=== PATIENT | female | born 1955 | race Caucasian/White ===

== ENCOUNTER 2016-11-17 17:49 | Inpatient (IN) | payer OTHER ==
[~2016-11-17] VITALS: Ht 167.6 cm; Wt 82.6 kg
[2016-11-17] MEDS ORDERED: DIVA500T7 PO (18:04)
[2016-11-17] MEDS ORDERED: BACL20TA PO (18:04)
[2016-11-17] MEDS ORDERED: QUET50TA PO (18:04)
[2016-11-17] MEDS ORDERED: ATOR40TA PO (18:04)
[2016-11-17] MEDS ORDERED: MIRT30TA7 PO (18:04)
[2016-11-17] MEDS ORDERED: OXYC-164 PO (18:04)
[2016-11-17] MEDS ORDERED: METH10TA2 PO (18:04)
[2016-11-17] MEDS ORDERED: CLON1TAB4 PO (18:04)
[2016-11-17] MEDS ORDERED: LEVO500T90 PO (18:04)
[2016-11-17] MEDS ORDERED: GABA-534 PO (18:04)
[2016-11-17] MEDS ORDERED: DULO20CA PO (18:04)
[2016-11-17] MEDS ORDERED: FLUT1BLS IH (18:04)
[2016-11-17] MEDS ORDERED: LEVO150T8 PO (18:04)
[2016-11-17] MEDS ORDERED: OXYB5TAB11 PO (18:04)
[2016-11-17] MEDS ORDERED: DOCU250C21 PO (18:04)
[2016-11-17] MEDS ORDERED: RIVA1TAB PO (18:04)
[2016-11-17 18:22] LABS: BASOPHILS # (AUTO) 0.1 K/uL (0.0-8.0); BASOPHILS % (AUTO) 1.1 % (0.0-2.0); EOSINOPHILS # (AUTO) 0.1 K/uL (0.0-0.7); EOSINOPHILS % (AUTO) 0.7 % (0.0-7.0); HEMATOCRIT 43.5 % (37-47); HEMOGLOBIN 14.1 G/DL (12.0-16.0); LYMPHOCYTES % (AUTO) 9.6 % (20.5-51.5); MEAN CORPUSCULAR HEMOGLOBIN 31.2 UUG (27.0-31.0); MEAN CORPUSCULAR HGB CONC 32 g/dL (32.0-37.0); MEAN CORPUSCULAR VOLUME 96.1 FL (81.0-99.0); MONOCYTES # (AUTO) 0.4 K/UL (0.1-1.30); MONOCYTES % (AUTO) 4.4 % (0.0-11.0); NEUTROPHILS # (AUTO) 8.5 K/UL (1.8-8.9); NEUTROPHILS % (AUTO) 84.2 % (38.5-71.5); PLATELET COUNT (AUTO) 348 K/UL (150-450); RED BLOOD CELL COUNT(AUTO) 4.52 MIL/UL (4.2-5.4); WHITE BLOOD COUNT (AUTO) 10.1 K/UL (4.0-11.2)
[2016-11-17 18:29] LABS: CALCIUM 9.6 mg/dL (8.5-10.1); CHLORIDE 104 mmol/L (98-107); CREATININE 0.9 mg/dL (0.6-1.3); GFR 64 mL/min (>60); GLUCOSE 106 mg/dL (74-106); POTASSIUM 3.6 mmol/L (3.5-5.1); SODIUM SERUM 145 mmol/L (136-145); UREA NITROGEN, BLOOD 18 mg/dL (7-18)
[2016-11-17 18:30] LABS: CARBON DIOXIDE 33 mmol/L (21-32); ETHANOL < 3 MG/DL (0-0)
[2016-11-17 18:35] LABS: ALANINE AMINOTRANSFERASE 9 U/L (14-59); ALBUMIN 3.5 g/dL (3.4-5.0); ALKALINE PHOSPHATASE 116 U/L (50-136); ASPARTATE AMINOTRANSFERASE 13 U/L (15-37); BILIRUBIN,DIRECT 0.1 mg/dL (0.0-0.2); BILIRUBIN,TOTAL 0.4 mg/dL (0.2-1.0); TOTAL PROTEIN, SERUM 7.2 g/dL (6.4-8.2)
[2016-11-17 18:36] LABS: ACETAMINOPHEN < 2.0 ug/mL (10-30)
[2016-11-17] MEDS ORDERED: LORAZEPAM 2 MG/1 ML VIAL IM ONE (18:45)
[2016-11-17] MEDS ORDERED: LORAZEPAM 2 MG/1 ML VIAL ONE (18:53)
[2016-11-17 18:56] LABS: THYROID STIMULATING HORMONE 1.691 mIU/mL (0.358-3.740)
[2016-11-17] MEDS ORDERED: TEMAZEPAM 7.5 MG CAPSULE PO PRN (20:15)
[2016-11-17] MEDS ORDERED: LORAZEPAM 0.5 MG TABLET PO PRN (20:15)
[2016-11-17] MEDS ORDERED: ACETAMINOPHEN 325 MG TABLET PO PRN (20:15)
[2016-11-17] MEDS ORDERED: MAG HYDROX/AL HYDROX/SIMETH 30 ML LIQUID UDC PO PRN (20:15)
[2016-11-17 20:54] VITALS: BP 149/87
[2016-11-17] MEDS: LORAZEPAM 1 MG TABLET PO PRN (21:09)
[2016-11-17] MEDS ORDERED: OLANZAPINE 10 MG VIAL IM ONE (22:15)
[2016-11-18] MEDS: BACLOFEN 20 MG TABLET PO SCH ×4 (06:00→17:20)
[2016-11-18 07:30] VITALS: BP 139/97
[2016-11-18] MEDS: LEVOTHYROXINE SODIUM 150 MCG TABLET PO SCH (08:21)
[2016-11-18] MEDS: DOCUSATE SODIUM 250 MG CAPSULE PO SCH ×2 (08:21→17:20)
[2016-11-18] MEDS: LORAZEPAM 1 MG TABLET PO PRN (08:21)
[2016-11-18] MEDS ORDERED: GABAPENTIN 300 MG CAPSULE PO SCH (09:00)
[2016-11-18] MEDS ORDERED: RIVAROXABAN PO SCH (09:00)
[2016-11-18] MEDS ORDERED: Medication Not On Formulary EA (Oxycodone Hcl/Acetaminophen (Oxycodone-Apap 10-325 Mg Ta PO SCH (09:00)
[2016-11-18] MEDS: OXYBUTYNIN CHLORIDE 5 MG TABLET PO SCH (10:43)
[2016-11-18] MEDS: METHADONE HCL 10 MG TABLET PO SCH ×2 (10:44→20:28)
[2016-11-18] MEDS ORDERED: OXYCODONE/APAP 5-325 MG TABLET PO PRN (10:45)
[2016-11-18] MEDS ORDERED: OLANZAPINE 10 MG VIAL IM ONE (10:45)
[2016-11-18] MEDS ORDERED: LEVOFLOXACIN 500 MG TABLET PO SCH (11:30)
[2016-11-18] MEDS: FLUTICASONE/SALMETEROL 100/50 1 INH DISK.W.DEV INH SCH ×2 (14:34→20:28)
[2016-11-18] MEDS: DIVALPROEX SPRINKLE 125 MG CAP.SPRINK PO SCH ×2 (15:33→17:21)
[2016-11-18] MEDS: QUETIAPINE FUMARATE 25 MG TABLET PO SCH ×2 (15:34→17:21)
[2016-11-18] MEDS: GABAPENTIN 300 MG CAPSULE PO SCH ×2 (15:34→17:21)
[2016-11-18] MEDS: DULOXETINE 60 MG CAPSULE.DR PO SCH (15:34)
[2016-11-18 15:41] VITALS: BP 125/84
[2016-11-18] MEDS: RIVAROXABAN 10 MG TABLET PO SCH (17:22)
[2016-11-18] MEDS: MIRTAZAPINE 15 MG TABLET PO SCH (20:27)
[2016-11-18] MEDS: ATORVASTATIN 40 MG TABLET PO SCH (20:28)
[2016-11-18 20:47] VITALS: BP 112/62
[2016-11-19] MEDS: BACLOFEN 20 MG TABLET PO SCH ×5 (06:37→23:59)
[2016-11-19] MEDS: LEVOTHYROXINE SODIUM 150 MCG TABLET PO SCH (06:37)
[2016-11-19 07:30] VITALS: BP 137/67
[2016-11-19] MEDS: DIVALPROEX SPRINKLE 125 MG CAP.SPRINK PO SCH ×3 (08:39→17:16)
[2016-11-19] MEDS: DULOXETINE 60 MG CAPSULE.DR PO SCH (08:40)
[2016-11-19] MEDS: OXYBUTYNIN CHLORIDE 5 MG TABLET PO SCH (08:40)
[2016-11-19] MEDS: METHADONE HCL 10 MG TABLET PO SCH ×2 (08:40→20:22)
[2016-11-19] MEDS: QUETIAPINE FUMARATE 25 MG TABLET PO SCH ×3 (08:40→17:16)
[2016-11-19] MEDS: FLUTICASONE/SALMETEROL 100/50 1 INH DISK.W.DEV INH SCH ×2 (08:41→20:16)
[2016-11-19] MEDS: DOCUSATE SODIUM 250 MG CAPSULE PO SCH ×2 (08:41→17:16)
[2016-11-19] MEDS: GABAPENTIN 300 MG CAPSULE PO SCH ×3 (08:41→17:16)
[2016-11-19 16:12] VITALS: BP 129/75
[2016-11-19] MEDS: MAGNESIUM HYDROXIDE 30 ML LIQUID UDC PO PRN (18:12)
[2016-11-19] MEDS: RIVAROXABAN 10 MG TABLET PO SCH (18:13)
[2016-11-19] MEDS: ATORVASTATIN 40 MG TABLET PO SCH (20:16)
[2016-11-19] MEDS: MIRTAZAPINE 15 MG TABLET PO SCH (20:16)
[2016-11-19 20:31] VITALS: BP 108/68
[2016-11-20 00:33] LABS: *BILIRUBIN,URIN NEGATIVE (NEGATIVE); *BLOOD, URINE Trace-intact (NEGATIVE); *COLOR,URINE STRAW (YELLOW); *KETONES,URINE NEGATIVE (NEGATIVE); *PROTEIN,URINE NEGATIVE (NEGATIVE); *UROBILINOGEN,URINE 0.2 E.U./dl (NORMAL); LEUKOCYTE ESTERASE ,URINE 3+ (NEGATIVE); NITRITE, URINE NEGATIVE (NEGATIVE); UGLUCOSE NEGATIVE (NEGATIVE)
[2016-11-20] MEDS: TEMAZEPAM 15 MG CAPSULE PO PRN ×2 (00:40→23:20)
[2016-11-20 00:41] LABS: *CLARITY,URINE CLEARH (CLEAR)
[2016-11-20 00:42] LABS: BACTERIA,URINE FEW /HPF (NONE SEEN); SQUAMOUS EPITHELIAL CELL,UR MODERATE /HPF (NONE SEEN); WBC,URINE 20-50 /HPF (0-3)
[2016-11-20 00:46] LABS: *AMPHETAMINE, URINE NEGATIVE (NEGATIVE); *BARBITURATE, URINE NEGATIVE (NEGATIVE); *CANNABINOID, URINE POSITIVE (NEGATIVE); *COCCAINE, URINE NEGATIVE (NEGATIVE); *OPIATE, URINE NEGATIVE (NEGATIVE); *PHENCYCLIDINE SCREEN,URINE NEGATIVE (NEGATIVE)
[2016-11-20] MEDS: BACLOFEN 20 MG TABLET PO SCH ×3 (06:29→17:33)
[2016-11-20] MEDS: LEVOTHYROXINE SODIUM 150 MCG TABLET PO SCH (06:29)
[2016-11-20 07:30] VITALS: BP 122/80
[2016-11-20] MEDS: FLUTICASONE/SALMETEROL 100/50 1 INH DISK.W.DEV INH SCH ×2 (08:36→21:12)
[2016-11-20] MEDS: DOCUSATE SODIUM 250 MG CAPSULE PO SCH ×2 (08:36→17:32)
[2016-11-20] MEDS: DULOXETINE 60 MG CAPSULE.DR PO SCH (08:37)
[2016-11-20] MEDS: DIVALPROEX SPRINKLE 125 MG CAP.SPRINK PO SCH ×3 (08:37→17:32)
[2016-11-20] MEDS: OXYBUTYNIN CHLORIDE 5 MG TABLET PO SCH (08:40)
[2016-11-20] MEDS: METHADONE HCL 10 MG TABLET PO SCH ×2 (08:41→21:11)
[2016-11-20] MEDS: QUETIAPINE FUMARATE 25 MG TABLET PO SCH ×3 (08:41→17:32)
[2016-11-20] MEDS: GABAPENTIN 300 MG CAPSULE PO SCH ×3 (08:41→17:33)
[2016-11-20] MEDS: NICOTINE 21 MG/24HR PATCH TD SCH (11:06)
[2016-11-20 15:27] VITALS: BP 114/66
[2016-11-20] MEDS ORDERED: SULFAMETH/TRIMETH 800/160 MG TABLET PO SCH (17:00)
[2016-11-20] MEDS: RIVAROXABAN 10 MG TABLET PO SCH (17:33)
[2016-11-20] MEDS: SULFAMETH/TRIMETH 800/160 MG TABLET PO SCH (17:33)
[2016-11-20 20:33] VITALS: BP 114/63
[2016-11-20] MEDS: ATORVASTATIN 40 MG TABLET PO SCH (20:47)
[2016-11-20] MEDS: MIRTAZAPINE 15 MG TABLET PO SCH (20:48)
[2016-11-21] MEDS: BACLOFEN 20 MG TABLET PO SCH ×4 (05:11→17:14)
[2016-11-21] MEDS: LEVOTHYROXINE SODIUM 150 MCG TABLET PO SCH (06:21)
[2016-11-21 07:30] VITALS: BP 149/87
[2016-11-21] MEDS: DIVALPROEX SPRINKLE 125 MG CAP.SPRINK PO SCH ×3 (08:16→17:13)
[2016-11-21] MEDS: FLUTICASONE/SALMETEROL 100/50 1 INH DISK.W.DEV INH SCH ×2 (08:16→20:20)
[2016-11-21] MEDS: DULOXETINE 60 MG CAPSULE.DR PO SCH (08:17)
[2016-11-21] MEDS: OXYBUTYNIN CHLORIDE 5 MG TABLET PO SCH (08:17)
[2016-11-21] MEDS: METHADONE HCL 10 MG TABLET PO SCH ×2 (08:17→20:06)
[2016-11-21] MEDS: NICOTINE 21 MG/24HR PATCH TD SCH (08:18)
[2016-11-21] MEDS: DOCUSATE SODIUM 250 MG CAPSULE PO SCH ×2 (08:18→17:13)
[2016-11-21] MEDS: QUETIAPINE FUMARATE 25 MG TABLET PO SCH ×3 (08:18→17:14)
[2016-11-21] MEDS: GABAPENTIN 300 MG CAPSULE PO SCH ×3 (08:18→17:13)
[2016-11-21] MEDS: SULFAMETH/TRIMETH 800/160 MG TABLET PO SCH ×2 (08:18→17:14)
[2016-11-21 16:15] VITALS: BP 107/79
[2016-11-21] MEDS: RIVAROXABAN 10 MG TABLET PO SCH (17:15)
[2016-11-21] MEDS: MIRTAZAPINE 15 MG TABLET PO SCH (20:05)
[2016-11-21] MEDS: ATORVASTATIN 40 MG TABLET PO SCH (20:05)
[2016-11-21 20:18] VITALS: BP 124/64
[2016-11-21] MEDS: MAGNESIUM HYDROXIDE 30 ML LIQUID UDC PO PRN (20:20)
[2016-11-22] MEDS: BACLOFEN 20 MG TABLET PO SCH ×4 (06:27→17:36)
[2016-11-22] MEDS: LEVOTHYROXINE SODIUM 150 MCG TABLET PO SCH (06:45)
[2016-11-22 08:00] VITALS: BP 134/97
[2016-11-22] MEDS: DULOXETINE 60 MG CAPSULE.DR PO SCH (09:36)
[2016-11-22] MEDS: GABAPENTIN 300 MG CAPSULE PO SCH ×3 (09:36→17:34)
[2016-11-22] MEDS: DIVALPROEX SPRINKLE 125 MG CAP.SPRINK PO SCH ×3 (09:36→17:34)
[2016-11-22] MEDS: DOCUSATE SODIUM 250 MG CAPSULE PO SCH ×2 (09:36→17:34)
[2016-11-22] MEDS: QUETIAPINE FUMARATE 25 MG TABLET PO SCH ×3 (09:37→17:34)
[2016-11-22] MEDS: OXYBUTYNIN CHLORIDE 5 MG TABLET PO SCH (09:37)
[2016-11-22] MEDS: METHADONE HCL 10 MG TABLET PO SCH (09:37)
[2016-11-22] MEDS: FLUTICASONE/SALMETEROL 100/50 1 INH DISK.W.DEV INH SCH (09:38)
[2016-11-22] MEDS: NICOTINE 21 MG/24HR PATCH TD SCH (09:38)
[2016-11-22] MEDS: SULFAMETH/TRIMETH 800/160 MG TABLET PO SCH ×2 (09:45→17:34)
[2016-11-22] MEDS: RIVAROXABAN 10 MG TABLET PO SCH (17:36)
== END 2016-11-22 17:28 | DRG 885 ==
LOC: ER 17:53 → GPS 19:05
PROVIDERS: ADMIT Psychiatry & Neurology Psychiatry; ATTEND Family Medicine
DX: F31.64 Bipolar disorder, current episode mixed, severe, with psychotic features (principal); N39.0 Urinary tract infection, site not specified; E03.9 Hypothyroidism, unspecified; E78.5 Hyperlipidemia, unspecified; G89.29 Other chronic pain; Z86.718 Personal history of other venous thrombosis and embolism; Z79.01 Long term (current) use of anticoagulants; Z86.711 Personal history of pulmonary embolism; Z82.49 Family history of ischemic heart disease and other diseases of the circulatory system; Z82.3 Family history of stroke; Z85.3 Personal history of malignant neoplasm of breast; Z90.13 Acquired absence of bilateral breasts and nipples; J44.9 Chronic obstructive pulmonary disease, unspecified; Z79.891 Long term (current) use of opiate analgesic; M54.5 Low back pain; F17.210 Nicotine dependence, cigarettes, uncomplicated
CPT/HCPCS: 36415; 71010; 80307; 84443; 85025; 85610; 87086; 93005; 97001; A4663; G0480-TC; G6040-TC; J2060; J2358

== ENCOUNTER 2017-01-31 21:07 | Inpatient (IN) | payer OTHER, MEDICAID ==
[~2017-01-31] VITALS: Ht 165.1 cm; Wt 69.9 kg
[~2017-01-31 21:07] MED LIST: ATOR40TA PO; BACL20TA PO; DOCU250C88 PO; FLUT1BLS IH; LEVO150T8 PO; LEVO500T90 PO; METH10TA2 PO; OXYB5TAB11 PO; OXYC-164 PO; RIVA1TAB PO
--- NOTE | 2017-01-31 21:30 | NUR ---
Pt maxine from facility. Pt has multiple c/o chronic pain mainly to head, neck and back. Pt also c/o having anxiety but feels she isnt treated correctly at her facility. Pt is hypervebal and speaking loudly. No obvious trauma noted. Pt seen by Dr. Banks, awaiting further orders.
--- NOTE | 2017-01-31 21:45 | NUR ---
Pt refused xray and CT. MD aware. Pt allowed labs to be drawn and ekg to be obtained.
[2017-01-31 22:00] LABS: BASOPHILS # (AUTO) 0.1 K/uL (0.0-8.0); BASOPHILS % (AUTO) 0.6 % (0.0-2.0); EOSINOPHILS # (AUTO) 0.3 K/uL (0.0-0.7); EOSINOPHILS % (AUTO) 2.9 % (0.0-7.0); HEMATOCRIT 43.6 % (37-47); HEMOGLOBIN 14.2 G/DL (12.0-16.0); LYMPHOCYTES # (AUTO) 2.9 K/UL (0.8-4.8); LYMPHOCYTES % (AUTO) 32.6 % (20.5-51.5); MEAN CORPUSCULAR HEMOGLOBIN 30.8 UUG (27.0-31.0); MEAN CORPUSCULAR HGB CONC 33 g/dL (32.0-37.0); MEAN CORPUSCULAR VOLUME 94.4 FL (81.0-99.0); MONOCYTES # (AUTO) 0.4 K/UL (0.1-1.30); MONOCYTES % (AUTO) 4.9 % (0.0-11.0); NEUTROPHILS # (AUTO) 5.2 K/UL (1.8-8.9); PLATELET COUNT (AUTO) 285 K/UL (150-450); RED BLOOD CELL COUNT(AUTO) 4.62 MIL/UL (4.2-5.4); WHITE BLOOD COUNT (AUTO) 8.9 K/UL (4.0-11.2)
[2017-01-31 22:02] LABS: ALANINE AMINOTRANSFERASE 13 U/L (14-59); ALKALINE PHOSPHATASE 98 U/L (50-136); ASPARTATE AMINOTRANSFERASE 13 U/L (15-37); BILIRUBIN,DIRECT 0.1 mg/dL (0.0-0.2); BILIRUBIN,TOTAL 0.4 mg/dL (0.2-1.0); CARBON DIOXIDE 30 mmol/L (21-32); CHLORIDE 101 mmol/L (98-107); CREATININE 0.8 mg/dL (0.6-1.3); GLUCOSE 87 mg/dL (74-106); POTASSIUM 3.7 mmol/L (3.5-5.1); TOTAL PROTEIN, SERUM 7.6 g/dL (6.4-8.2); UREA NITROGEN, BLOOD 10 mg/dL (7-18)
[2017-01-31 22:13] LABS: ACETAMINOPHEN < 2.0 ug/mL (10-30)
[2017-01-31 22:18] LABS: *BILIRUBIN,URIN NEGATIVE (NEGATIVE); *BLOOD, URINE NEGATIVE (NEGATIVE); *CLARITY,URINE CLEAR (CLEAR); *COLOR,URINE LIGHT YELLOW (YELLOW); *KETONES,URINE NEGATIVE (NEGATIVE); *PROTEIN,URINE NEGATIVE (NEGATIVE); *UROBILINOGEN,URINE 0.2 E.U./dl (NORMAL); LEUKOCYTE ESTERASE ,URINE NEGATIVE (NEGATIVE); NITRITE, URINE NEGATIVE (NEGATIVE); UGLUCOSE NEGATIVE (NEGATIVE)
[2017-01-31 22:30] LABS: *AMPHETAMINE, URINE NEGATIVE (NEGATIVE); *BARBITURATE, URINE NEGATIVE (NEGATIVE); *CANNABINOID, URINE NEGATIVE (NEGATIVE); *COCCAINE, URINE NEGATIVE (NEGATIVE); *OPIATE, URINE NEGATIVE (NEGATIVE); *PHENCYCLIDINE SCREEN,URINE NEGATIVE (NEGATIVE)
--- NOTE | 2017-01-31 22:30 | NUR ---
Pt medically cleared by Dr. Banks. Hua with crisis team called for evaluation. Pt resting in position of comfort for self. Pt calm and cooperative at this time
[2017-01-31 22:40] LABS: BACTERIA,URINE FEW /HPF (NONE SEEN); RBC,URINE 0-3 /HPF (0-3); SQUAMOUS EPITHELIAL CELL,UR FEW /HPF (NONE SEEN); WBC,URINE 0-3 /HPF (0-3)
[2017-01-31 23:00] LABS: ETHANOL < 3 MG/DL (0-0)
--- NOTE | 2017-01-31 23:10 | NUR ---
Hua with crisis team at bedside for pt evaluation
--- NOTE | 2017-02-01 00:13 | NUR ---
Pt placed on 5150 for gravely disabled. Admission pending.
[2017-02-01] MEDS ORDERED: GABAPENTIN 300 MG CAPSULE PO (00:42)
[2017-02-01] MEDS ORDERED: TRAM50TA2 PO (00:42)
[2017-02-01] MEDS ORDERED: DULO60CA45 PO (00:42)
[2017-02-01] MEDS ORDERED: MIRTAZAPINE 15 MG TABLET PO (00:42)
[2017-02-01] MEDS ORDERED: DIVA250T4 PO (00:42)
[2017-02-01] MEDS ORDERED: HYDROCODONE/APAP 10-325 MG TABLET PO ONE (01:00)
--- NOTE | 2017-02-01 01:13 | NUR ---
Report called to JOSE CARLOS Tse. Preparing to transfer pt to the floor
[2017-02-01] MEDS ORDERED: HYDROCODONE/APAP 10-325 MG TABLET ONE (01:18)
[2017-02-01 02:02] VITALS: BP 99/65
[2017-02-01] MEDS ORDERED: MAG HYDROX/AL HYDROX/SIMETH 30 ML LIQUID UDC PO PRN (02:15)
[2017-02-01] MEDS ORDERED: ACETAMINOPHEN 325 MG TABLET PO PRN (02:15)
[2017-02-01] MEDS: TEMAZEPAM 7.5 MG CAPSULE PO PRN ×2 (02:40→23:00)
[2017-02-01] MEDS ORDERED: TEMAZEPAM 7.5 MG CAPSULE ONE (02:46)
--- NOTE | 2017-02-01 03:24 | NUR ---
DR. STOCK NOTIFIED. WILL REVIEW NEW ORDERS.
[2017-02-01] MEDS ORDERED: ACETAMINOPHEN 325 MG TABLET ONE (04:35)
[2017-02-01 04:38] VITALS: BP 102/53
--- NOTE | 2017-02-01 06:35 | NUR ---
NO CHANGES T/O SHIFT. NO ACUTE DISTRESS NOTED. 1:1 SITTER AT BEDSIDE. 5150 HOLD. PATIENT SLEPT MOST OF THE TIME. NO ACUTE DISTRESS NOTED. SAFETY AND COMFORT MEASURES MAINTAINED T/O SHIFT. ALL NEEDS MET.
--- NOTE | 2017-02-01 08:00 | NUR ---
Awake, alert, oriented x 4, easily irritated and angry, yelling. Redirected, asked to lower voice. Asking for her 'regular medications', informed Candie MCAT TUTOR. Verbalized feeling anxious. Ativan po given
[2017-02-01] MEDS: NICOTINE 21 MG/24HR PATCH TD SCH (08:15)
[2017-02-01] MEDS: LORAZEPAM 0.5 MG TABLET PO PRN ×2 (08:15→19:51)
--- NOTE | 2017-02-01 09:15 | NUR ---
Seen by Dr. Hernadez, patient signed for medication and compliant with taking them
[2017-02-01] MEDS: DIVALPROEX 250 MG TABLET.DR PO SCH ×3 (10:06→16:19)
[2017-02-01] MEDS: DULOXETINE 30 MG CAPSULE.DR PO SCH (10:06)
[2017-02-01] MEDS ORDERED: LEVOTHYROXINE SODIUM 150 MCG TABLET PO SCH (10:15)
[2017-02-01] MEDS ORDERED: Medication Not On Formulary EA (Oxycodone Hcl/Acetaminophen (Oxycodone-Apap 10-325 Mg Ta PO PRN (10:15)
[2017-02-01 11:36] VITALS: BP 135/90
--- NOTE | 2017-02-01 11:48 | NUR ---
Initial discharge instructions: Pt resides at [facility] [[address],[address];[phone]].Per pt,she would like to return there upon discharge.SW will speak with administration at facility to determine if pt may return.SW will speak with pt and MD regarding appropriate discharge plans.SW will form a safe and proper discharge.Pt did not consent for son to be contacted.
[2017-02-01] MEDS ORDERED: GABAPENTIN 300 MG PO SCH (13:00)
--- NOTE | 2017-02-01 13:07 | NUR ---
Sleeping, even when tried to arouse, will give lunch meal and medications when awake.
[2017-02-01] MEDS: GABAPENTIN 300 MG CAPSULE PO SCH ×2 (13:29→16:20)
[2017-02-01] MEDS: OXYCODONE/APAP 5-325 MG TABLET PO PRN ×2 (13:29→19:02)
[2017-02-01] MEDS: OXYBUTYNIN CHLORIDE 5 MG TABLET PO SCH (13:30)
[2017-02-01] MEDS: BACLOFEN 20 MG TABLET PO SCH ×3 (13:30→23:59)
--- NOTE | 2017-02-01 13:30 | NUR ---
Woke up yelling, complaining of cramping pain of BLE. Oxycodone po given, also took due medications
--- NOTE | 2017-02-01 13:44 | NUR ---
UR Note: VALERIA faxed clinicals to [facility] [ EXT [phone]/ [phone] ] awaiting authorization.
[2017-02-01 16:01] VITALS: BP 139/82
[2017-02-01] MEDS: LEVOTHYROXINE SODIUM 150 MCG TABLET PO SCH (16:19)
[2017-02-01] MEDS: TRAMADOL HCL 50 MG TABLET PO SCH (16:20)
[2017-02-01] MEDS: METHADONE HCL 10 MG TABLET PO SCH (16:20)
[2017-02-01] MEDS: RIVAROXABAN 10 MG TABLET PO SCH (17:34)
[2017-02-01] MEDS: FLUTICASONE/VILANTEROL 1 EACH BLST.W.DEV IH SCH (17:34)
--- NOTE | 2017-02-01 18:00 | NUR ---
Patient calm and cooperative, crying, apologetic for previous behavior, appreciative of care.
--- NOTE | 2017-02-01 19:18 | NUR ---
Complaining of back pain, Oxycodone po given. Transferred to MHU per wheelchair in fair condition.
[2017-02-01 20:36] VITALS: BP 113/77
[2017-02-01] MEDS: ATORVASTATIN 40 MG TABLET PO SCH (21:10)
[2017-02-01] MEDS: HYDROCORTISONE 0.5% CREAM 28.35 GM TUBE TOP PRN (21:11)
--- NOTE | 2017-02-01 22:00 | NUR ---
received to care, at 1930. was labile, and easily agitated, yelling, and initially, difficult to redirect. PRN ativan was given at 1950, and 1;1 interaction provided for emotional support. she stated she didnt like he fact that staff has to inventory her belongings. also stated that she "hates" herself right now, and has been taking it out on the people who care for her, the most. by 2029, she was much calmer. stated good relief from PRN percocet, given earlier. currently in her room, lying on her bed. no distress noted. will continue to monitor closely.
--- NOTE | 2017-02-01 23:00 | NUR ---
PRN restoril given, for insomnia
--- NOTE | 2017-02-01 23:30 | NUR ---
appears to be asleep.
[2017-02-02] MEDS: OXYCODONE/APAP 5-325 MG TABLET PO PRN ×2 (02:00→12:38)
--- NOTE | 2017-02-02 02:00 | NUR ---
PRN percocet given, for lower back pain, 02/08
--- NOTE | 2017-02-02 03:00 | NUR ---
appears to be asleep. no distress noted.
[2017-02-02] MEDS ORDERED: BACLOFEN 10 MG TABLET ONE (03:52)
[2017-02-02] MEDS: BACLOFEN 20 MG TABLET PO SCH ×3 (05:36→17:57)
--- NOTE | 2017-02-02 06:00 | NUR ---
slept 5.5 hours, total. continues to sleep. no distress noted.
[2017-02-02] MEDS: LEVOTHYROXINE SODIUM 150 MCG TABLET PO SCH (06:12)
[2017-02-02] MEDS: NICOTINE 21 MG/24HR PATCH TD SCH (08:47)
[2017-02-02] MEDS: DULOXETINE 30 MG CAPSULE.DR PO SCH (08:48)
[2017-02-02] MEDS: GABAPENTIN 300 MG CAPSULE PO SCH ×3 (08:48→17:58)
[2017-02-02] MEDS: METHADONE HCL 10 MG TABLET PO SCH ×2 (08:48→17:58)
[2017-02-02] MEDS: OXYBUTYNIN CHLORIDE 5 MG TABLET PO SCH (08:48)
[2017-02-02] MEDS: TRAMADOL HCL 50 MG TABLET PO SCH ×2 (08:49→17:58)
[2017-02-02] MEDS: LORAZEPAM 0.5 MG TABLET PO PRN ×2 (08:49→17:59)
[2017-02-02] MEDS: FLUTICASONE/VILANTEROL 1 EACH BLST.W.DEV IH SCH (09:00)
[2017-02-02] MEDS: DIVALPROEX 250 MG TABLET.DR PO SCH ×3 (09:32→17:00)
[2017-02-02] MEDS: QUETIAPINE FUMARATE 25 MG TABLET PO SCH ×2 (12:27→17:58)
--- NOTE | 2017-02-02 14:48 | NUR ---
UR Note: VALERIA faxed clinicals to [facility] [ EXT [phone]/ [phone] ] awaiting authorization.
[2017-02-02] MEDS: RIVAROXABAN 10 MG TABLET PO SCH (17:59)
[2017-02-02] MEDS: HYDROCORTISONE 0.5% CREAM 28.35 GM TUBE TOP PRN (20:12)
[2017-02-02] MEDS: ATORVASTATIN 40 MG TABLET PO SCH (20:16)
--- NOTE | 2017-02-02 22:00 | NUR ---
received to care, pleasant, but slightly anxious. no interactions with peers, noted. b/p at start of shift was 83/50, hr 74. pt denied any dizziness, or other sx. po fluids were encouraged, and, as of 2199, it is now 88/58, hr 89. currently watching tv, eating a snack. no distress noted.
[2017-02-03] MEDS: BACLOFEN 20 MG TABLET PO SCH ×4 (00:29→17:03)
[2017-02-03] MEDS: TEMAZEPAM 7.5 MG CAPSULE PO PRN (00:46)
--- NOTE | 2017-02-03 00:46 | NUR ---
b/p is now 98/62, hr 79. PRN restoril was given at her request. she is currently in bed. no distress noted. will continue to monitor closely.
[2017-02-03] MEDS: OXYCODONE/APAP 5-325 MG TABLET PO PRN (02:11)
--- NOTE | 2017-02-03 02:11 | NUR ---
PRN percocet given, for lower back pain, 01/08
--- NOTE | 2017-02-03 03:00 | NUR ---
appears to be asleep.
[2017-02-03] MEDS: LEVOTHYROXINE SODIUM 150 MCG TABLET PO SCH (06:00)
--- NOTE | 2017-02-03 06:00 | NUR ---
slept 4 hours, total.
--- NOTE | 2017-02-03 07:20 | NUR ---
RECEIVED TO CARE, PT IN ROOM ASLEEP, RESP EVEN/UNLABORED, WILL CONTINUE TO MONITOR.
[2017-02-03 07:30] VITALS: BP 90/57
[2017-02-03] MEDS: NICOTINE 21 MG/24HR PATCH TD SCH (08:49)
[2017-02-03] MEDS: TRAMADOL HCL 50 MG TABLET PO SCH ×2 (08:49→17:04)
[2017-02-03] MEDS: QUETIAPINE FUMARATE 25 MG TABLET PO SCH ×2 (08:49→16:55)
[2017-02-03] MEDS: OXYBUTYNIN CHLORIDE 5 MG TABLET PO SCH (08:50)
[2017-02-03] MEDS: GABAPENTIN 300 MG CAPSULE PO SCH ×3 (08:50→16:55)
[2017-02-03] MEDS: DULOXETINE 30 MG CAPSULE.DR PO SCH (08:50)
[2017-02-03] MEDS: DIVALPROEX 250 MG TABLET.DR PO SCH ×3 (08:50→17:00)
[2017-02-03] MEDS: METHADONE HCL 10 MG TABLET PO SCH ×2 (08:50→16:55)
[2017-02-03] MEDS: FLUTICASONE/VILANTEROL 1 EACH BLST.W.DEV IH SCH (08:51)
--- NOTE | 2017-02-03 10:00 | NUR ---
PT TOOK ALL AM MEDS EXCEPT DEPAKOTE, PT REFUSED.
--- NOTE | 2017-02-03 12:45 | NUR ---
PT REFUSED DEPAKOTE PO.
[2017-02-03 15:00] VITALS: BP 122/65
[2017-02-03] MEDS: RIVAROXABAN 10 MG TABLET PO SCH (17:09)
--- NOTE | 2017-02-03 17:30 | NUR ---
PT TOOK ALL 5PM MEDS EXCEPT DEPAKOTE.
[2017-02-03 20:49] VITALS: BP 105/65
[2017-02-03] MEDS: ATORVASTATIN 40 MG TABLET PO SCH (22:12)
[2017-02-04] MEDS: BACLOFEN 20 MG TABLET PO SCH ×5 (00:57→23:37)
[2017-02-04] MEDS: LORAZEPAM 0.5 MG TABLET PO PRN ×5 (03:01→21:32)
[2017-02-04 07:13] LABS: BASOPHILS % (AUTO) 0.5 % (0.0-2.0); EOSINOPHILS # (AUTO) 0.2 K/uL (0.0-0.7); EOSINOPHILS % (AUTO) 2.5 % (0.0-7.0); HEMATOCRIT 40.7 % (37-47); HEMOGLOBIN 13.4 G/DL (12.0-16.0); LYMPHOCYTES # (AUTO) 2.6 K/UL (0.8-4.8); LYMPHOCYTES % (AUTO) 38.4 % (20.5-51.5); MEAN CORPUSCULAR HEMOGLOBIN 31.1 UUG (27.0-31.0); MEAN CORPUSCULAR HGB CONC 33 g/dL (32.0-37.0); MEAN CORPUSCULAR VOLUME 94.5 FL (81.0-99.0); MONOCYTES # (AUTO) 0.5 K/UL (0.1-1.30); MONOCYTES % (AUTO) 6.7 % (0.0-11.0); NEUTROPHILS # (AUTO) 3.6 K/UL (1.8-8.9); NEUTROPHILS % (AUTO) 51.9 % (38.5-71.5); PLATELET COUNT (AUTO) 264 K/UL (150-450); RED BLOOD CELL COUNT(AUTO) 4.31 MIL/UL (4.2-5.4); WHITE BLOOD COUNT (AUTO) 6.9 K/UL (4.0-11.2)
[2017-02-04 07:16] LABS: BILIRUBIN,TOTAL 0.3 mg/dL (0.2-1.0); CREATININE 0.8 mg/dL (0.6-1.3); MAGNESIUM 1.8 mg/dL (1.8-2.4); PHOSPHOROUS 4.2 mg/dL (2.5-4.9); TOTAL PROTEIN, SERUM 6.6 g/dL (6.4-8.2)
[2017-02-04 07:30] VITALS: BP 115/73
[2017-02-04] MEDS: LEVOTHYROXINE SODIUM 150 MCG TABLET PO SCH (07:44)
[2017-02-04] MEDS: METHADONE HCL 10 MG TABLET PO SCH ×2 (08:41→16:49)
[2017-02-04] MEDS: OXYBUTYNIN CHLORIDE 5 MG TABLET PO SCH (08:42)
[2017-02-04] MEDS: DULOXETINE 30 MG CAPSULE.DR PO SCH (08:42)
[2017-02-04] MEDS: QUETIAPINE FUMARATE 25 MG TABLET PO SCH ×2 (08:42→16:50)
[2017-02-04] MEDS: GABAPENTIN 300 MG CAPSULE PO SCH ×3 (08:42→16:50)
[2017-02-04] MEDS: TRAMADOL HCL 50 MG TABLET PO SCH ×2 (08:42→16:49)
[2017-02-04] MEDS: DIVALPROEX 250 MG TABLET.DR PO SCH ×3 (08:43→16:50)
[2017-02-04] MEDS: NICOTINE 21 MG/24HR PATCH TD SCH (08:52)
[2017-02-04] MEDS: FLUTICASONE/VILANTEROL 1 EACH BLST.W.DEV IH SCH (08:53)
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
[2017-02-04 15:19] VITALS: BP 103/67
[2017-02-04] MEDS: RIVAROXABAN 10 MG TABLET PO SCH (17:06)
[2017-02-04] MEDS: HYDROCORTISONE 0.5% CREAM 28.35 GM TUBE TOP PRN (19:44)
[2017-02-04 20:00] VITALS: BP 104/47
[2017-02-04] MEDS: ATORVASTATIN 40 MG TABLET PO SCH (20:08)
[2017-02-04] MEDS: OXYCODONE/APAP 5-325 MG TABLET PO PRN (20:10)
[2017-02-05] MEDS: TEMAZEPAM 7.5 MG CAPSULE PO PRN ×2 (00:06→23:33)
--- NOTE | 2017-02-05 00:06 | NUR ---
PATIENT IS VERY RESTLESS. PATIENT GIVEN RESTORIL 7.5MG PO PRN FOR SLEEP. WILL CONTINUE TO MONITOR.
[2017-02-05] MEDS: LEVOTHYROXINE SODIUM 150 MCG TABLET PO SCH (06:17)
[2017-02-05] MEDS: BACLOFEN 20 MG TABLET PO SCH ×4 (06:17→23:33)
[2017-02-05 07:30] VITALS: BP 115/55
[2017-02-05] MEDS: OXYBUTYNIN CHLORIDE 5 MG TABLET PO SCH (08:44)
[2017-02-05] MEDS: GABAPENTIN 300 MG CAPSULE PO SCH ×3 (08:44→16:29)
[2017-02-05] MEDS: NICOTINE 21 MG/24HR PATCH TD SCH (08:44)
[2017-02-05] MEDS: DULOXETINE 30 MG CAPSULE.DR PO SCH (08:44)
[2017-02-05] MEDS: QUETIAPINE FUMARATE 25 MG TABLET PO SCH ×2 (08:44→16:29)
[2017-02-05] MEDS: FLUTICASONE/VILANTEROL 1 EACH BLST.W.DEV IH SCH (08:45)
[2017-02-05] MEDS: LORAZEPAM 0.5 MG TABLET PO PRN ×3 (08:45→22:17)
[2017-02-05] MEDS: TRAMADOL HCL 50 MG TABLET PO SCH ×2 (08:45→16:29)
[2017-02-05] MEDS: METHADONE HCL 10 MG TABLET PO SCH ×2 (08:45→16:27)
[2017-02-05] MEDS: DIVALPROEX 250 MG TABLET.DR PO SCH ×3 (08:46→16:29)
--- NOTE | 2017-02-05 11:08 | NUR ---
UR Note: VALERIA faxed clinicals to [facility] [ EXT [phone]/ [phone] ] awaiting authorization.
--- NOTE | 2017-02-05 15:02 | NUR ---
GPS: Nursing Notes: Severe Agitation: Patient is overly intrusive, argumentative, poor anger management, aggressive toward staff, accusatory toward staff by shouting and pointing her finger at staff, restless, setting limits, but unable to be redirected, accusing staff of breaking her fingers, paranoid, delusional, believes that we are is stealing from her, believes that we took all her paper from her, disorganized, overly demanding, but when her demands are not met immediately she gets irritable and angry toward staff, obsessive compulsive behavior, continue to redirect and setting limits, but continue to be restless, continue with treatment plan.
--- NOTE | 2017-02-05 15:19 | NUR ---
GPS: Nursing Notes: Right Forearm: Patient is scratching her right arm constantly, witnessed by JOSE CARLOS Cheema and Liza NICOLE, then she is accusing staff of hurting her, manipulative behavior, argumentative, threatening staff with a law massimo, setting limits, poor impulse control, continue to monitor for safety, continue with treatment plan. Addendum: 02/05/17 at 1616 by ESTHER BUENO LVN GPS: Nursing Notes: Correction: JOSE CARLOS Callaway, correction from above statement.
[2017-02-05] MEDS ORDERED: LORAZEPAM 2 MG/1 ML VIAL IM ONE (15:30)
[2017-02-05] MEDS ORDERED: OLANZAPINE 10 MG VIAL IM ONE (15:30)
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
[2017-02-05 16:41] VITALS: BP 117/76
[2017-02-05] MEDS: RIVAROXABAN 10 MG TABLET PO SCH (17:05)
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
[2017-02-05 20:13] VITALS: BP 104/68
[2017-02-05] MEDS: ATORVASTATIN 40 MG TABLET PO SCH (20:46)
--- NOTE | 2017-02-05 22:00 | NUR ---
received to care, watching tv by self, pleasant, upon approach. no management problems this shift, but does attempt to split staff, and can be manipulative, if firm limits are not set. compliant with medications and staff direction. as of 2199, she remains awake, watching tv. no interactions with peers, noted. assisted as needed. will continue to monitor closely.
--- NOTE | 2017-02-05 23:33 | NUR ---
PRN restoril, given for insomnia
--- NOTE | 2017-02-06 00:33 | NUR ---
appears to be asleep. no distress noted.
[2017-02-06] MEDS: MAGNESIUM HYDROXIDE 30 ML LIQUID UDC PO PRN ×2 (01:35→01:48)
--- NOTE | 2017-02-06 06:00 | NUR ---
slept 4.5 hours, total. remains calm and cooperative.
[2017-02-06] MEDS: BACLOFEN 20 MG TABLET PO SCH ×3 (06:13→17:31)
[2017-02-06] MEDS: LEVOTHYROXINE SODIUM 150 MCG TABLET PO SCH (06:13)
[2017-02-06] MEDS: QUETIAPINE FUMARATE 25 MG TABLET PO SCH (08:31)
[2017-02-06] MEDS: DULOXETINE 30 MG CAPSULE.DR PO SCH (08:31)
[2017-02-06] MEDS: OXYBUTYNIN CHLORIDE 5 MG TABLET PO SCH (08:31)
[2017-02-06] MEDS: METHADONE HCL 10 MG TABLET PO SCH ×2 (08:31→16:55)
[2017-02-06] MEDS: GABAPENTIN 300 MG CAPSULE PO SCH ×3 (08:31→16:54)
[2017-02-06] MEDS: LORAZEPAM 0.5 MG TABLET PO PRN ×2 (08:31→13:00)
[2017-02-06] MEDS: TRAMADOL HCL 50 MG TABLET PO SCH ×2 (08:32→16:55)
[2017-02-06] MEDS: FLUTICASONE/VILANTEROL 1 EACH BLST.W.DEV IH SCH (08:32)
[2017-02-06] MEDS: NICOTINE 21 MG/24HR PATCH TD SCH (08:32)
[2017-02-06] MEDS: DIVALPROEX 250 MG TABLET.DR PO SCH ×3 (08:32→16:54)
[2017-02-06 08:55] VITALS: BP 114/69
[2017-02-06] MEDS: HYDROCORTISONE 0.5% CREAM 28.35 GM TUBE TOP PRN (11:35)
[2017-02-06 15:46] VITALS: BP 116/64
[2017-02-06] MEDS: QUETIAPINE FUMARATE 100 MG TABLET PO SCH (16:54)
[2017-02-06] MEDS ORDERED: QUETIAPINE FUMARATE 25 MG TABLET PO SCH (17:00)
--- NOTE | 2017-02-06 17:18 | NUR ---
GPS: Nursing Notes: Thought Disorder: Patient is awake and responding to her name, poor impulse control, overly disruptive by shouting, argumentative, hyperverbal, redirected, but unable to follow directions, constantly asking for narcotics, manipulative behavior, saying one thing to one staff and another thing to another staff, accusing staff of abusing her, impaired judgment, believes that she is not getting her narcotics, needy, overly demanding, gets easily irritable when redirected, constantly threatening staff with a law massimo, unable to formulate a viable plan for self care, continue with treatment plan.
[2017-02-06] MEDS: RIVAROXABAN 10 MG TABLET PO SCH (17:32)
[2017-02-06 19:30] VITALS: BP 107/63
[2017-02-06] MEDS: ATORVASTATIN 40 MG TABLET PO SCH (20:21)
--- NOTE | 2017-02-06 22:00 | NUR ---
received to care, sitting by self,pleasant, upon approach. compliant with medications and staff direction. as of 0, she remains awake, reading , in her room. no interactions with peers, noted. assisted as needed. will continue to monitor closely.
[2017-02-06] MEDS: TEMAZEPAM 7.5 MG CAPSULE PO PRN (22:09)
--- NOTE | 2017-02-06 22:09 | NUR ---
PRN restoril, given for insomnia
[2017-02-07] MEDS: BACLOFEN 20 MG TABLET PO SCH ×5 (00:37→23:57)
[2017-02-07] MEDS: OXYCODONE/APAP 5-325 MG TABLET PO PRN (02:26)
[2017-02-07] MEDS: LEVOTHYROXINE SODIUM 150 MCG TABLET PO SCH (06:09)
[2017-02-07 07:30] VITALS: BP 109/67
[2017-02-07] MEDS: FLUTICASONE/VILANTEROL 1 EACH BLST.W.DEV IH SCH (08:57)
[2017-02-07] MEDS: DULOXETINE 30 MG CAPSULE.DR PO SCH (08:58)
[2017-02-07] MEDS: GABAPENTIN 300 MG CAPSULE PO SCH ×3 (08:58→17:02)
[2017-02-07] MEDS: NICOTINE 21 MG/24HR PATCH TD SCH (08:58)
[2017-02-07] MEDS: DIVALPROEX 250 MG TABLET.DR PO SCH ×3 (08:58→17:02)
[2017-02-07] MEDS: OXYBUTYNIN CHLORIDE 5 MG TABLET PO SCH (09:01)
[2017-02-07] MEDS: QUETIAPINE FUMARATE 100 MG TABLET PO SCH ×2 (09:01→17:01)
[2017-02-07] MEDS: TRAMADOL HCL 50 MG TABLET PO SCH ×2 (09:06→17:13)
[2017-02-07] MEDS: METHADONE HCL 10 MG TABLET PO SCH ×2 (09:06→17:12)
--- NOTE | 2017-02-07 09:16 | NUR ---
UR Note: VALERIA faxed daily clinicals to [facility] [ EXT 434/ [phone] ]. Tracking #[id number]
[2017-02-07 16:00] VITALS: BP 120/68
[2017-02-07] MEDS: RIVAROXABAN 10 MG TABLET PO SCH (17:03)
[2017-02-07 19:55] VITALS: BP 111/70
[2017-02-07] MEDS: ATORVASTATIN 40 MG TABLET PO SCH (21:15)
--- NOTE | 2017-02-07 22:00 | NUR ---
received to care, sitting in the activity room, pleasant, upon approach. compliant with medications and staff direction. as of 2200, she remains awake, reading. no distress noted. will continue to monitor closely.
[2017-02-07] MEDS: LORAZEPAM 0.5 MG TABLET PO PRN (22:42)
--- NOTE | 2017-02-07 22:42 | NUR ---
PRN ativan given for anxiety.
--- NOTE | 2017-02-07 23:30 | NUR ---
appears calmer now.
[2017-02-08] MEDS: TEMAZEPAM 7.5 MG CAPSULE PO PRN (00:13)
--- NOTE | 2017-02-08 00:13 | NUR ---
PRN restoril given for insomnia
--- NOTE | 2017-02-08 00:45 | NUR ---
appears to be asleep. no distress noted.
--- NOTE | 2017-02-08 06:00 | NUR ---
slept 6.5 hours, total.
[2017-02-08] MEDS: LEVOTHYROXINE SODIUM 150 MCG TABLET PO SCH (06:22)
[2017-02-08] MEDS: BACLOFEN 20 MG TABLET PO SCH ×4 (06:22→23:55)
[2017-02-08 07:30] VITALS: BP 121/78
[2017-02-08] MEDS: METHADONE HCL 10 MG TABLET PO SCH ×2 (08:26→16:36)
[2017-02-08] MEDS: OXYBUTYNIN CHLORIDE 5 MG TABLET PO SCH (08:26)
[2017-02-08] MEDS: GABAPENTIN 300 MG CAPSULE PO SCH ×3 (08:26→16:36)
[2017-02-08] MEDS: QUETIAPINE FUMARATE 100 MG TABLET PO SCH ×2 (08:26→16:37)
[2017-02-08] MEDS: DULOXETINE 30 MG CAPSULE.DR PO SCH (08:26)
[2017-02-08] MEDS: DIVALPROEX 250 MG TABLET.DR PO SCH ×3 (08:26→16:37)
[2017-02-08] MEDS: TRAMADOL HCL 50 MG TABLET PO SCH ×2 (08:27→16:38)
[2017-02-08] MEDS: NICOTINE 21 MG/24HR PATCH TD SCH (08:27)
[2017-02-08] MEDS: FLUTICASONE/VILANTEROL 1 EACH BLST.W.DEV IH SCH (08:28)
--- NOTE | 2017-02-08 12:45 | NUR ---
PATIENT COMPLAINED OF PAIN AND REQUESTED FOR PRN PERCOCET GIVEN ORDERED AND WILL OBSERVE.
[2017-02-08] MEDS: OXYCODONE/APAP 5-325 MG TABLET PO PRN ×2 (12:48→20:25)
--- NOTE | 2017-02-08 15:56 | NUR ---
UR Note: VALERIA faxed daily clinicals to [facility] [ EXT 434/ [phone] ]. Tracking #[id number]
[2017-02-08 16:00] VITALS: BP 97/62
[2017-02-08 16:30] VITALS: BP 103/65
--- NOTE | 2017-02-08 16:30 | NUR ---
BLOOD PRESSURE IS 97/78 PATIENT IS ASSYMPTOMATIC AT THIS TIME RECHECKED AFTER 30 MINUTES AND BLOOD PRESSURE NOW 103/65 WILL CONTINUE TO OBSERVE.
[2017-02-08] MEDS: RIVAROXABAN 10 MG TABLET PO SCH (17:05)
[2017-02-08] MEDS: ATORVASTATIN 40 MG TABLET PO SCH (20:07)
[2017-02-08 21:16] VITALS: BP 111/57
[2017-02-09] MEDS: LORAZEPAM 0.5 MG TABLET PO PRN ×2 (00:05→10:01)
[2017-02-09] MEDS: LEVOTHYROXINE SODIUM 150 MCG TABLET PO SCH (06:19)
[2017-02-09] MEDS: BACLOFEN 20 MG TABLET PO SCH ×2 (06:19→12:14)
[2017-02-09 07:30] VITALS: BP 123/75
[2017-02-09] MEDS: DULOXETINE 30 MG CAPSULE.DR PO SCH (09:57)
[2017-02-09] MEDS: GABAPENTIN 300 MG CAPSULE PO SCH ×3 (09:59→16:43)
[2017-02-09] MEDS: OXYBUTYNIN CHLORIDE 5 MG TABLET PO SCH (09:59)
[2017-02-09] MEDS: DIVALPROEX 250 MG TABLET.DR PO SCH ×3 (09:59→16:44)
[2017-02-09] MEDS: METHADONE HCL 10 MG TABLET PO SCH ×2 (09:59→16:43)
[2017-02-09] MEDS: QUETIAPINE FUMARATE 100 MG TABLET PO SCH ×2 (09:59→16:44)
[2017-02-09] MEDS: TRAMADOL HCL 50 MG TABLET PO SCH ×2 (10:00→16:44)
[2017-02-09] MEDS: NICOTINE 21 MG/24HR PATCH TD SCH (10:01)
[2017-02-09] MEDS: FLUTICASONE/VILANTEROL 1 EACH BLST.W.DEV IH SCH (10:02)
--- NOTE | 2017-02-09 14:39 | NUR ---
DC Note: Patient will be discharged to [facility] [[address] [place] [address]; ] via taxi at 4:00 pm. Patient will be provided with a taxi voucher. Patient will be provided with a taxi voucher. Spoke with Akbar the building construction estimator of the facility who stated they would accept the patient today. Patient is aware and agreeable with discharge plans. Patient's family is unable to assist with discharge plan. Patient was encouraged to follow-up with [facility], [address] [place] [address] at 9:00 am on 02/12/17 for intake screening. For smoking cessation, patient was referred to [employer] 800-LUNGUSA and [employer] [phone]. Patient was also referred to the Nicotine Anonymous meeting on Monday February 13, 2017 at 7:00 pm at [address] [facility], [address]. Patient will follow-up with (Department Head) [[address], [place] [address]; ] and was referred to Orin Lovelace (Therapist) [[address] [place], [address]; [phone]]. Patient was also referred to (Psychiatrist) [[address] [place] [address]; ]. Patient was instructed to contact outpatient coordinator, Sumaya carcamo [facility] [phone] prior to scheduling an appointment in order to have authorization.
[2017-02-09 15:00] VITALS: BP 122/72
[2017-02-09] MEDS: RIVAROXABAN 10 MG TABLET PO SCH (16:49)
--- NOTE | 2017-02-09 18:02 | NUR ---
Patient brought in front of the lobby,regan is waiting for her 5 Pm medications given as wll as Xarelto Patient given presriptions .Patient given verbal and wriitten insructions .Verbalized understanding .All belongings as well as safe belongings given to patient .Patient is calm .Patient denies homicidal or suicidal ideation .
== END 2017-02-09 17:00 | DRG 885 ==
LOC: ER 21:07 → GPSOV 02-01 01:22 → GPS 02-01 19:35
PROVIDERS: ADMIT Psychiatry & Neurology Psychiatry; ATTEND Internal Medicine
DX: F31.64 Bipolar disorder, current episode mixed, severe, with psychotic features (principal); E03.9 Hypothyroidism, unspecified; Z85.3 Personal history of malignant neoplasm of breast; Z90.13 Acquired absence of bilateral breasts and nipples; Z86.711 Personal history of pulmonary embolism; Z79.01 Long term (current) use of anticoagulants; Z86.718 Personal history of other venous thrombosis and embolism; Z79.899 Other long term (current) drug therapy; Z88.0 Allergy status to penicillin; F12.10 Cannabis abuse, uncomplicated; J45.909 Unspecified asthma, uncomplicated; Z87.81 Personal history of (healed) traumatic fracture; Z91.410 Personal history of adult physical and sexual abuse; G89.4 Chronic pain syndrome; G62.9 Polyneuropathy, unspecified; F41.9 Anxiety disorder, unspecified; F25.9 Schizoaffective disorder, unspecified; E78.5 Hyperlipidemia, unspecified; E78.1 Pure hyperglyceridemia
CPT/HCPCS: 36415; 80164; 80307; 83735; 84100; 84443; 85025; 93005; A4663; G0480; G0480-TC; J2060; J2358; J3490

== ENCOUNTER 2017-11-11 11:17 | Emergency (ER) | payer OTHER, MEDICAID ==
[~2017-11-11] VITALS: Ht 162.6 cm; Wt 86.2 kg
[~2017-11-11 11:17] MED LIST changes: +GABAPENTIN 300 MG CAPSULE PO; -OXYC-164 PO; +OXYC-451 PO; +TRAM50TA2 PO
--- NOTE | 2017-11-11 11:22 | NUR ---
Unable to reconcile pt's home medications, no information provided by EMS, pt unable to provide infomation, no paperwork/info sent with pt from SNF.
[2017-11-11] MEDS ORDERED: LORAZEPAM 2 MG/1 ML VIAL ONE (11:36)
[2017-11-11] MEDS ORDERED: LORAZEPAM 2 MG/1 ML VIAL IM ONE (11:45)
[2017-11-11] MEDS ORDERED: ONDANSETRON ODT 4 MG TAB.RAPDIS ONE (11:47)
[2017-11-11] MEDS ORDERED: ONDANSETRON ODT 4 MG TAB.RAPDIS SL ONE (12:00)
--- NOTE | 2017-11-11 12:05 | NUR ---
pt resting at this point.
--- NOTE | 2017-11-11 13:00 | NUR ---
called [facility] and let them know that the pt is coming back home. was told to arrange the transfer. Addendum: 11/11/17 at 1320 by KARRIE talked to pt, pt says feels better and is ready to go back home.
--- NOTE | 2017-11-11 13:08 | NUR ---
called emy, eta 90 minutes, # [phone]
--- NOTE | 2017-11-11 13:44 | NUR ---
hands off report given to pa bowen
--- NOTE | 2017-11-11 15:01 | NUR ---
emy at bedside to take the pt back to [facility]. pt says feels better, very appreciative of the service recieved here.
[2017-11-11 15:02] VITALS: BP 132/80
[2017-12-04] MEDS ORDERED: CARI350T PO (19:01)
[2017-12-04] MEDS ORDERED: DULO60CA45 PO (19:01)
[2017-12-04] MEDS ORDERED: MIRT30TA7 PO (19:01)
[2017-12-04] MEDS ORDERED: LEVO137T2 PO (19:01)
[2017-12-04] MEDS ORDERED: CELE200C PO (19:01)
[2017-12-04] MEDS ORDERED: QUET100T PO (19:01)
[2017-12-04] MEDS ORDERED: CLON0.5T4 PO (19:01)
[2017-12-04] MEDS ORDERED: OMEP20CA10 PO (19:01)
[2017-12-04] MEDS ORDERED: DIVA250T4 PO (19:01)
[2017-12-04] MEDS ORDERED: GABA-534 PO (19:01)
[2017-12-04] MEDS ORDERED: OXYB5TAB11 PO (19:01)
[2017-12-04] MEDS ORDERED: DICL100G16 TP (19:01)
[2017-12-04] MEDS ORDERED: TRIA15CR2 TP (19:01)
[2017-12-07] MEDS ORDERED: PANT40TA2 PO (16:48)
[2017-12-07] MEDS ORDERED: HYDR-3326 PO (16:48)
[2017-12-07] MEDS ORDERED: QUET100T PO (16:48)
[2017-12-07] MEDS ORDERED: HYDR-3895 PO (16:48)
[2017-12-07] MEDS ORDERED: NEOM28.3 TOP (16:48)
[2017-12-07] MEDS ORDERED: CHOL10002 PO (16:48)
[2017-12-07] MEDS ORDERED: SULF1TAB3 PO (16:48)
[2017-12-07] MEDS ORDERED: HYDR25TA86 PO (16:48)
[2017-12-07] MEDS ORDERED: AMLO5TAB2 PO (16:48)
[2017-12-07] MEDS ORDERED: OMEG1CAP PO (16:48)
[2017-12-07] MEDS ORDERED: ACET325T53 PO (16:48)
== END 2017-11-11 15:06 | disposition home or self-care (01) ==
LOC: ER 11:17
DX: F41.9 Anxiety disorder, unspecified (principal); G89.29 Other chronic pain; Z88.0 Allergy status to penicillin
CPT/HCPCS: 93005; 96372; 99284; A4663; J2060; Q0162

== ENCOUNTER 2018-02-04 15:11 | Inpatient (IN) | payer OTHER, MEDICAID ==
[~2018-02-04] VITALS: Ht 160 cm; Wt 74.8 kg
[~2018-02-04 15:11] MED LIST changes: +ACET325T53 PO; +AMLO5TAB2 PO; -BACL20TA PO; +CHOL10002 PO; +CLON0.5T12 PO; +DIVA250T4 PO; +GABA-534 PO; -GABAPENTIN 300 MG CAPSULE PO; +HYDR-3326 PO; +HYDR-3895 PO; +HYDR25TA86 PO; +LEVO137T2 PO; -LEVO150T8 PO; -LEVO500T90 PO; -METH10TA2 PO; +NEOM28.3 TOP; +OMEG1CAP PO; -OXYC-451 PO; +PANT40TA2 PO; +QUET100T PO; +SULF1TAB3 PO; -TRAM50TA2 PO
--- NOTE | 2018-02-04 15:24 | NUR ---
at bedside to examine patient.
[2018-02-04] MEDS ORDERED: NALOXONE HCL 0.4 MG/ML AMPUL IV ONE (15:30)
[2018-02-04] MEDS ORDERED: SENN-93 PO (15:45)
[2018-02-04] MEDS ORDERED: RIVA10TA PO (15:45)
[2018-02-04] MEDS ORDERED: TRIA15CR2 TP (15:45)
[2018-02-04] MEDS ORDERED: SENN-92 PO (15:45)
--- NOTE | 2018-02-04 15:46 | NUR ---
After narcan administered patient awake restless agitated.
[2018-02-04] MEDS ORDERED: NALOXONE HCL 0.4 MG/ML AMPUL ONE (15:47)
[2018-02-04 15:52] LABS: BASOPHILS # (AUTO) 0.1 K/uL (0.0-8.0); BASOPHILS % (AUTO) 0.8 % (0.0-2.0); EOSINOPHILS # (AUTO) 0.1 K/uL (0.0-0.7); EOSINOPHILS % (AUTO) 1.1 % (0.0-7.0); HEMATOCRIT 35.4 % (31.2-41.9); LYMPHOCYTES # (AUTO) 1.1 K/uL (20.0-40.0); MEAN CORPUSCULAR HEMOGLOBIN 33.1 uug (24.7-32.8); MEAN CORPUSCULAR HGB CONC 34 g/dL (32.3-35.6); MEAN CORPUSCULAR VOLUME 97.7 fL (75.5-95.3); MONOCYTES # (AUTO) 0.7 K/uL (2.0-10.0); NEUTROPHILS # (AUTO) 4.7 K/uL (1.8-8.9); NEUTROPHILS % (AUTO) 70.1 % (38.5-71.5); PLATELET COUNT (AUTO) 258 K/uL (179-408); RED BLOOD CELL COUNT(AUTO) 3.62 MIL/uL (3.63-4.92); WHITE BLOOD COUNT (AUTO) 6.7 K/uL (3.8-11.8)
[2018-02-04 16:03] LABS: CARBON DIOXIDE 23 mmol/L (21-32); CHLORIDE 104 mmol/L (98-107); CREATININE 1.4 mg/dL (0.6-1.3); GLUCOSE 97 mg/dL (74-106); POTASSIUM 2.9 mmol/L (3.5-5.1); UREA NITROGEN, BLOOD 36 mg/dL (7-18)
[2018-02-04 16:08] LABS: ETHANOL < 3 MG/DL (0-0)
[2018-02-04] MEDS ORDERED: OXYB5TAB29 PO (16:10)
[2018-02-04] MEDS ORDERED: QUET100T PO (16:10)
[2018-02-04] MEDS ORDERED: CELE200C PO (16:10)
[2018-02-04] MEDS ORDERED: MIRT30TA7 PO (16:10)
[2018-02-04] MEDS ORDERED: DULO60CA45 PO (16:10)
[2018-02-04] MEDS ORDERED: OMEP20TA5 PO (16:10)
[2018-02-04] MEDS ORDERED: DOCU250C88 PO (16:10)
[2018-02-04] MEDS ORDERED: DICL100G16 TP (16:10)
[2018-02-04] MEDS ORDERED: METH10TA2 PO (16:10)
[2018-02-04] MEDS ORDERED: RIVA20TA PO (16:10)
[2018-02-04] MEDS ORDERED: OXYC-451 PO (16:10)
[2018-02-04] MEDS ORDERED: CARI350T PO (16:10)
[2018-02-04] MEDS ORDERED: VANCOMYCIN IV 1,000 MG in IV DEXTROSE 5% 250 ML IV ONE (16:15)
[2018-02-04 16:16] LABS: ALANINE AMINOTRANSFERASE 27 U/L (14-59); ALKALINE PHOSPHATASE 72 U/L (50-136); ASPARTATE AMINOTRANSFERASE 106 U/L (15-37); BILIRUBIN,DIRECT 0.1 mg/dL (0.0-0.2); BILIRUBIN,TOTAL 0.5 mg/dL (0.2-1.0); TOTAL PROTEIN, SERUM 6.8 g/dL (6.4-8.2)
[2018-02-04 16:17] LABS: ACETAMINOPHEN < 2.0 ug/mL (10-30)
[2018-02-04] MEDS ORDERED: VANCOMYCIN IV 200 ML ONE (16:18)
--- NOTE | 2018-02-04 16:25 | NUR ---
call med-surge floor request for both a scooter and med-surge bed.
--- NOTE | 2018-02-04 16:42 | NUR ---
patient remains restless agitated. both MD. and debone supervisor aware.
[2018-02-04] MEDS ORDERED: ONDANSETRON 4 MG/2 ML VIAL IV PRN (17:00)
[2018-02-04] MEDS ORDERED: ACETAMINOPHEN 325 MG TABLET PO PRN (17:00)
[2018-02-04] MEDS ORDERED: MAGNESIUM HYDROXIDE 30 ML LIQUID UDC PO PRN (17:00)
[2018-02-04] MEDS ORDERED: Z GUARD REMEDY PASTE 57 GM TUBE TOP PRN (17:00)
--- NOTE | 2018-02-04 17:04 | NUR ---
sbp of 134/81, Hr 82, sat of 98%. pt. sleeping on/off.
[2018-02-04] MEDS ORDERED: POTASSIUM CHLORIDE 100 ML ONE (17:07)
--- NOTE | 2018-02-04 17:11 | NUR ---
telephone report given to rn. goodrich. joel. endorse to finish potassium infusion.
--- NOTE | 2018-02-04 17:12 | NUR ---
Full telephone SBAR report received by JOSE CARLOS Dominguez.
--- NOTE | 2018-02-04 17:19 | NUR ---
Patient up to room 217 via gurney.
--- NOTE | 2018-02-04 17:31 | NUR ---
Pt received from ER somnolent, confused. Unable to answer any questions at this time. Fall precautions and safety measures maintained.
[2018-02-04] MEDS: POTASSIUM CHLORIDE 50 ML IV SCH ×2 (17:42→19:07)
[2018-02-04 17:51] VITALS: BP 136/96
[2018-02-04] MEDS: IV NS 1000 ML 1,000 ML IV PRN (18:11)
--- NOTE | 2018-02-04 19:30 | NUR ---
Report received; care assumed. Patient sleeping, arouses to name but goes back to sleep right away. IV infusing well. Assessment completed. Addendum: 02/05/18 at 0141 by JORGE CUELLAR RN Amended: Links added. Addendum: 02/05/18 at 217 by JORGE CUELLAR RN Amended: Links added. Addendum: 02/05/18 at 8 by JORGE CUELLAR RN Amended: Links added. Addendum: 02/05/18 at 0220 by JORGE CUELLAR RN Amended: Links added. Addendum: 02/05/18 at 0221 by JORGE CUELLAR RN Amended: Links added.
[2018-02-04 20:00] VITALS: BP 121/67
--- NOTE | 2018-02-04 21:00 | NUR ---
Mayorga catheter inserted aseptically; with clear monique urine. MRSA swab obtained. Urine and MRSA swab specimens sent to lab.
[2018-02-04] MEDS: ATORVASTATIN 40 MG TABLET PO SCH (21:41)
[2018-02-04 22:25] LABS: *BILIRUBIN,URIN 1+ (NEGATIVE); *BLOOD, URINE NEGATIVE (NEGATIVE); *CLARITY,URINE SLIGHTLY CLOUDY (CLEAR); *COLOR,URINE YELLOW (YELLOW); *KETONES,URINE 1+ (NEGATIVE); *PROTEIN,URINE TRACE (NEGATIVE); *UROBILINOGEN,URINE 0.2 E.U./dl (NORMAL); LEUKOCYTE ESTERASE ,URINE NEGATIVE (NEGATIVE); NITRITE, URINE NEGATIVE (NEGATIVE); UGLUCOSE NEGATIVE (NEGATIVE)
[2018-02-04 22:48] LABS: BACTERIA,URINE NONE SEEN /HPF (NONE SEEN); MUCUS,URINE FEW /LPF (0-FEW); RBC,URINE 0-3 /HPF (0-3); RENAL EPITHELIAL CELLS,URINE FEW /LPF (NONE SEEN); SQUAMOUS EPITHELIAL CELL,UR MODERATE /HPF (NONE SEEN); WBC,URINE 0-3 /HPF (0-3)
[2018-02-04 22:50] LABS: *AMPHETAMINE, URINE POSITIVE (NEGATIVE); *BARBITURATE, URINE NEGATIVE (NEGATIVE); *CANNABINOID, URINE NEGATIVE (NEGATIVE); *COCCAINE, URINE NEGATIVE (NEGATIVE); *OPIATE, URINE NEGATIVE (NEGATIVE); *PHENCYCLIDINE SCREEN,URINE NEGATIVE (NEGATIVE)
--- NOTE | 2018-02-04 23:30 | NUR ---
Transferred to [facility]; sitter provided. Patient AA, IV constantly alarming. Patient bends arm. New IV started to RFA with angio cath #20. Wants something to eat. Tray provided. Ate 100% of dinner tray without swallowing difficulty.
[2018-02-05 00:11] VITALS: BP 99/61
--- NOTE | 2018-02-05 00:30 | NUR ---
Belonging list incompletely filled out. Completed by PROPOSAL WRITER and RN. As we were going through patient's belonging we found a bottle of Ativan for another patient. Patient claims it's her BF's medication and that she did not take any of these. complaint clerk made aware; medication counted and sealed in a bag. Will send to Pharmacy. Patient mildly agitated. Repeatedly c/o about the facility where she lives and claims that she was told by someone to rub off the scabs of her lesions with a towel. Advised appropriately.
[2018-02-05 04:29] VITALS: BP 100/54
[2018-02-05] MEDS: LEVOTHYROXINE SODIUM 137 MCG TABLET PO SCH (06:08)
[2018-02-05] MEDS: PANTOPRAZOLE SODIUM 40 MG TABLET.DR PO SCH (06:08)
--- NOTE | 2018-02-05 06:27 | NUR ---
Slept fairly well during the night. Contact isolation for scabies and safety precautions maintained. No hallucinations or SI noted.
[2018-02-05 07:00] LABS: BASOPHILS # (AUTO) 0.1 K/uL (0.0-8.0); BASOPHILS % (AUTO) 0.8 % (0.0-2.0); EOSINOPHILS # (AUTO) 0.2 K/uL (0.0-0.7); EOSINOPHILS % (AUTO) 2.6 % (0.0-7.0); HEMATOCRIT 35.5 % (31.2-41.9); HEMOGLOBIN 11.9 g/dL (10.9-14.3); LYMPHOCYTES # (AUTO) 1.9 K/uL (20.0-40.0); LYMPHOCYTES % (AUTO) 27.9 % (20.5-51.5); MEAN CORPUSCULAR HEMOGLOBIN 33.2 uug (24.7-32.8); MEAN CORPUSCULAR HGB CONC 34 g/dL (32.3-35.6); MEAN CORPUSCULAR VOLUME 98.8 fL (75.5-95.3); MONOCYTES # (AUTO) 0.7 K/uL (2.0-10.0); MONOCYTES % (AUTO) 10.4 % (0.0-11.0); NEUTROPHILS # (AUTO) 3.9 K/uL (1.8-8.9); NEUTROPHILS % (AUTO) 58.3 % (38.5-71.5); PLATELET COUNT (AUTO) 249 K/uL (179-408); WHITE BLOOD COUNT (AUTO) 6.7 K/uL (3.8-11.8)
[2018-02-05 07:09] LABS: CREATININE 0.8 mg/dL (0.6-1.3); MAGNESIUM 2.2 mg/dL (1.8-2.4); PHOSPHOROUS 2.9 mg/dL (2.5-4.9); POTASSIUM 3.3 mmol/L (3.5-5.1)
[2018-02-05] MEDS: OXYBUTYNIN XL 5 MG TABSR PO SCH (08:37)
[2018-02-05] MEDS ORDERED: Medication Not On Formulary EA (Omeprazole 20 MG) PO SCH (09:00)
[2018-02-05 10:53] VITALS: BP 108/60
[2018-02-05] MEDS ORDERED: POTASSIUM CHLORIDE 20 MEQ TAB.PRT.SR PO ONE (12:15)
[2018-02-05] MEDS ORDERED: PERMETHRIN 5% CREAM 60 GM TUBE TP ONE (12:15)
[2018-02-05] MEDS ORDERED: IV NORMAL SALINE 500 ML BAG IV ONE (12:15)
[2018-02-05] MEDS ORDERED: POTASSIUM CHLORIDE 20 MEQ POWDER PACKET PO ONE (12:30)
[2018-02-05] MEDS ORDERED: IV NORMAL SALINE 500 ML IV ONE (12:30)
[2018-02-05] MEDS: HYDROCODONE/APAP 5-325MG TABLET PO PRN (13:20)
[2018-02-05 14:33] VITALS: BP 106/66
[2018-02-05] MEDS ORDERED: MORPHINE SULFATE 2 MG/1 ML DISP.SYRIN IV PRN (14:45)
[2018-02-05] MEDS: RIVAROXABAN 10 MG TABLET PO SCH (16:59)
[2018-02-05] MEDS: MORPHINE SULFATE 2 MG/1 ML DISP.SYRIN IV PRN ×2 (17:00→21:10)
[2018-02-05 20:00] VITALS: BP 132/67
[2018-02-05] MEDS: ATORVASTATIN 40 MG TABLET PO SCH (21:09)
[2018-02-06] MEDS: HYDROCODONE/APAP 5-325MG TABLET PO PRN (02:01)
[2018-02-06] MEDS: IV NS 1000 ML 1,000 ML IV PRN (02:04)
[2018-02-06 04:00] VITALS: BP 142/78
[2018-02-06] MEDS: MORPHINE SULFATE 2 MG/1 ML DISP.SYRIN IV PRN ×3 (05:10→16:01)
--- NOTE | 2018-02-06 05:40 | NUR ---
Last night pt was very angry and yelling. She states she "doesn't know what's going on because no one wants to talk to me." Pt became angry because she was told she needed to shower at 3am to wash off the Premerin cream that was applied in the afteroon. I explained to patient in a calm manner that it's necessary to shower after the application and that we will change all sheets and clothes. Pt stated she was in pain when they applied the cream. I stated I would premedicate her if needed so she would not be uncomfortable while showering later. We also agreed she would shower at 5am. Addendum: 02/06/18 at 0544 by JAMEL FOREMAN RN Pt completed showering at this time. Complete linen change done. Clothes changed. Pt is comfortable. Continues with 1:1 sitter for safety. Pt has not been angry since the initial outburst during start of shift. Assured patient to ask her sitter to call me if she needs anything. Patient verbalized understanding.
[2018-02-06] MEDS: LEVOTHYROXINE SODIUM 137 MCG TABLET PO SCH (06:34)
[2018-02-06] MEDS: PANTOPRAZOLE SODIUM 40 MG TABLET.DR PO SCH (06:34)
[2018-02-06] MEDS: OXYBUTYNIN XL 5 MG TABSR PO SCH (09:05)
[2018-02-06 11:35] VITALS: BP 139/85
[2018-02-06] MEDS: LORAZEPAM 0.5 MG TABLET PO PRN ×2 (13:33→20:31)
[2018-02-06] MEDS: QUETIAPINE FUMARATE 25 MG TABLET PO SCH ×2 (13:33→16:00)
[2018-02-06] MEDS: DIVALPROEX 250 MG TABLET.DR PO SCH ×2 (13:34→16:00)
[2018-02-06 15:52] VITALS: BP 137/87
[2018-02-06] MEDS: RIVAROXABAN 10 MG TABLET PO SCH (18:00)
--- NOTE | 2018-02-06 18:35 | NUR ---
PT OBSERVED RESTING IN BED, COMPLIANT WITH MEDICATION AND CARE, PT HAS POOR APPETITE. PT WAS SEEN BY PSYCHIATRIST EDEL AND CALLI ORDERED. PT PAIN CONTROLLED BY MORPHINE. CONTINUE TO MONITOR PT.
--- NOTE | 2018-02-06 19:25 | NUR ---
RECEIVED PT AWAKE, ALERT, AND ORIENTEDX2. SITTER AT BEDSIDE. PT ANXIOUS. IV INTACT AND PATENT. CALL LIGHT WITHIN REACH. WILL CONTINUE TO MONITOR.
[2018-02-06 20:00] VITALS: BP 155/86
--- NOTE | 2018-02-06 20:10 | NUR ---
PT IV WAS PULLED OUT. REINSERT AT RIGHT HAND 22G. WILL CONTINUE TO MONITOR.
[2018-02-06] MEDS: ATORVASTATIN 40 MG TABLET PO SCH (20:31)
--- NOTE | 2018-02-06 20:31 | NUR ---
PT ANXIOUS AND GIVEN ATIVAN. PT STABLE. SITTER AT BEDSIDE. WILL CONTINUE TO MONITOR.
[2018-02-07] MEDS: MORPHINE SULFATE 2 MG/1 ML DISP.SYRIN IV PRN ×3 (00:38→14:23)
[2018-02-07] MEDS: LORAZEPAM 0.5 MG TABLET PO PRN ×2 (04:00→16:05)
--- NOTE | 2018-02-07 06:06 | NUR ---
PT SLEPT THROUGHOUT THE SHIFT. PT SHOWS NO SIGNS OF DISTRESS. PT IV INTACT AND PATENT.PRESCRIBED MEDICATION GIVEN AND PT TOLERATED IT WELL. SITTER AT BEDSIDE.CALL LIGHT WITHIN REACH. BED ALARM ON AND IN LOW POSITION.WILL ENDORSE ACCORDINGLY TO INCOMING NURSE.
[2018-02-07] MEDS: LEVOTHYROXINE SODIUM 137 MCG TABLET PO SCH (06:12)
[2018-02-07] MEDS: PANTOPRAZOLE SODIUM 40 MG TABLET.DR PO SCH (06:12)
[2018-02-07 08:03] VITALS: BP 165/88
[2018-02-07] MEDS: QUETIAPINE FUMARATE 25 MG TABLET PO SCH ×3 (08:09→16:05)
[2018-02-07] MEDS: DIVALPROEX 250 MG TABLET.DR PO SCH ×3 (08:09→16:05)
[2018-02-07] MEDS: OXYBUTYNIN XL 5 MG TABSR PO SCH (08:09)
[2018-02-07 12:19] VITALS: BP 153/82
[2018-02-07 15:51] VITALS: BP 149/74
--- NOTE | 2018-02-07 16:09 | NUR ---
PT D/C WITH ALL BELONGINGS, VALUABLES AND EXIT CARE PACKET, IV REMOVED, ID BAND REMOVED. PT STABLE TO DC TO MHU PER MD.
[2018-02-07] MEDS ORDERED: PANT40TA2 PO (18:27)
[2018-02-07] MEDS ORDERED: HYDR-3326 PO (18:27)
== END 2018-02-07 16:15 | DRG 92 ==
LOC: ER 15:14 → DOU 17:10 → TELE-TD 17:23 → TELE 22:58 → MED 02-05 20:05
PROVIDERS: ADMIT Internal Medicine; ATTEND Internal Medicine
DX: G92 Toxic encephalopathy (principal); E44.0 Moderate protein-calorie malnutrition; T50.905A Adverse effect of unspecified drugs, medicaments and biological substances, initial encounter; Y92.099 Unspecified place in other non-institutional residence as the place of occurrence of the external cause; Z79.01 Long term (current) use of anticoagulants; F31.9 Bipolar disorder, unspecified; F19.10 Other psychoactive substance abuse, uncomplicated; Z86.718 Personal history of other venous thrombosis and embolism; Z79.899 Other long term (current) drug therapy; Z86.711 Personal history of pulmonary embolism; N32.89 Other specified disorders of bladder; R09.02 Hypoxemia; Z91.5 Personal history of self-harm; K21.9 Gastro-esophageal reflux disease without esophagitis; J44.9 Chronic obstructive pulmonary disease, unspecified; F43.10 Post-traumatic stress disorder, unspecified; G47.00 Insomnia, unspecified; E87.6 Hypokalemia; E66.9 Obesity, unspecified; Z68.29 Body mass index [BMI] 29.0-29.9, adult; I10 Essential (primary) hypertension; G89.29 Other chronic pain; Z85.3 Personal history of malignant neoplasm of breast; Z90.13 Acquired absence of bilateral breasts and nipples; L98.9 Disorder of the skin and subcutaneous tissue, unspecified; Z86.19 Personal history of other infectious and parasitic diseases; F17.200 Nicotine dependence, unspecified, uncomplicated; E78.5 Hyperlipidemia, unspecified; E03.9 Hypothyroidism, unspecified
CPT/HCPCS: 36415; 70450; 71045; 80164; 80307; 83605; 83735; 84100; 85025; 87040; 93005; A4663; G0480; G0480-TC; J2270; J2310; J3370; J3480; J3490; J7030; J7040

== ENCOUNTER 2018-02-07 16:26 | Inpatient (IN) | payer OTHER, MEDICAID ==
[~2018-02-07] VITALS: Ht 160 cm; Wt 74.8 kg
[~2018-02-07 16:26] MED LIST changes: -ACET325T53 PO; -AMLO5TAB2 PO; +CARI350T PO; +CELE200C PO; -CHOL10002 PO; +DICL100G16 TP; +DULO60CA45 PO; -HYDR-3326 PO; -HYDR-3895 PO; -HYDR25TA86 PO; +METH10TA2 PO; +MIRT30TA7 PO; -NEOM28.3 TOP; -OMEG1CAP PO; +OMEP20TA5 PO; -OXYB5TAB11 PO; +OXYB5TAB29 PO; +OXYC-451 PO; -PANT40TA2 PO; -RIVA1TAB PO; +RIVA20TA PO; -SULF1TAB3 PO
--- NOTE | 2018-02-07 16:30 | NUR ---
[facility]. PT IS CALM, COOPERATIVE, AOX4, ROOM AIR, RESTING IN BED WITH NO SIGNS OF ACUTE DISTRESS. PT DENIES SUICIDAL IDEATION AT THIS TIME.CONTINUE TO MONITOR PT.
[2018-02-07] MEDS ORDERED: MAG HYDROX/AL HYDROX/SIMETH 30 ML LIQUID UDC PO PRN (17:45)
[2018-02-07] MEDS ORDERED: PANT40TA2 PO (18:27)
[2018-02-07] MEDS ORDERED: HYDR-3326 PO (18:27)
--- NOTE | 2018-02-07 18:57 | NUR ---
PT DENIES SUICIDAL IDEATION AT THIS TIME. OBSERVED RESTING IN BED. NO SIGNS OF ACUTE DISTRESS.
[2018-02-07 20:00] VITALS: BP 153/73
[2018-02-07] MEDS: MORPHINE SULFATE 2 MG/1 ML DISP.SYRIN IM PRN (20:30)
[2018-02-07] MEDS: TEMAZEPAM 7.5 MG CAPSULE PO PRN (21:39)
[2018-02-08] MEDS: LORAZEPAM 0.5 MG TABLET PO PRN ×4 (04:58→20:41)
[2018-02-08 06:28] VITALS: BP 149/82
--- NOTE | 2018-02-08 06:49 | NUR ---
PATIENT SLEPT 5 HOURS AND 30 MINUTES. VERY LABILE MOOD AND BEHAVIOR THROUGHOUT THE NIGHT. SITTER AT BEDSIDE FOR SAFETY.
[2018-02-08] MEDS: MORPHINE SULFATE 2 MG/1 ML DISP.SYRIN IM PRN ×2 (08:22→15:53)
[2018-02-08] MEDS ORDERED: DIVALPROEX 250 MG TABLET.DR PO SCH ×2 (09:00→13:00)
[2018-02-08] MEDS ORDERED: QUETIAPINE FUMARATE 100 MG TABLET PO SCH (09:00)
[2018-02-08] MEDS: ONDANSETRON ODT 4 MG TAB.RAPDIS SL PRN ×2 (09:07→16:01)
[2018-02-08] MEDS ORDERED: PANTOPRAZOLE SODIUM 40 MG TABLET.DR PO PRN (09:15)
[2018-02-08] MEDS: DIVALPROEX 250 MG TABLET.DR PO SCH ×3 (10:43→17:02)
[2018-02-08] MEDS: QUETIAPINE FUMARATE 100 MG TABLET PO SCH ×3 (10:43→17:02)
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
[2018-02-08 11:30] VITALS: BP 156/93
[2018-02-08] MEDS: GABAPENTIN 300 MG CAPSULE PO SCH ×2 (12:45→17:02)
--- NOTE | 2018-02-08 13:55 | NUR ---
JUNE CATHETER IS STILL INTACT AND DRAINING. URINE IS PINK WITH RED SEDIMENT. CONTINUE TO MONITOR. Addendum: 02/08/18 at 1401 by YUNIER BARRY RN WRONG PATIENT DOCUMENTATION. THIS PATIENT HAS NO MORE JUNE IT WAS DC. THIS PATIENTS URINE IS YELLOW AND CLEAR.
--- NOTE | 2018-02-08 14:20 | NUR ---
Initial Discharge Instructions: Patient currently resides at [facility] [[address] [place] [address]; ]. Spoke with Lizzy at the facility who states that the patient can return upon discharge. Patient refused to discuss discharge planning at this time, and SW will continue to follow-up with the patient. SW will continue to collaborate with pt and MD regarding most appropriate discharge plans for this patient. SW will form a safe and proper discharge plan.
--- NOTE | 2018-02-08 14:43 | NUR ---
UR Note: Food Safety Specialist provided clinical information to [employer]OR[employer] Mail Messenger Contractor, Christine (ph. [phone]). Tracking#[id number]. Awaiting further authorization. SW will continue to follow-up.
--- NOTE | 2018-02-08 14:46 | NUR ---
Firearms Report: Physician Allergist Immunologist completed and submitted [employer] Firearms Report on 02/08/18 for 5150 Danger to Self certification.
[2018-02-08 16:00] VITALS: BP 165/96
[2018-02-08] MEDS ORDERED: CLONIDINE HCL 0.1 MG TABLET PO PRN (17:00)
[2018-02-08] MEDS: DOCUSATE SODIUM 250 MG CAPSULE PO SCH (17:01)
[2018-02-08] MEDS: RIVAROXABAN 10 MG TABLET PO SCH (17:10)
--- NOTE | 2018-02-08 18:41 | NUR ---
PT IS LABILE, AGITATED, HYPERVERBAL WITH STAFF, RESTLESS, SCREAMING AND DEMANDING. PT REFUSED TO SHOWER, PT APPEARS DISHEVELED, WOUNDS WERE SEEN BY WOUND CARE NURSE. PT IN NO ACUTE DISTRESS, ROOM AIR, JUNE D/C. CONTINUE TO MONITOR PT.
[2018-02-08 19:00] VITALS: BP 157/76
--- NOTE | 2018-02-08 19:45 | NUR ---
RECEIVED REPORT THAT PATIENT IS TO BE TRANSFERRED DOWN TO MENTAL HEALTH. PATIENT IS A/O X3. LABILE MOOD AND EASILY AGITATED. SITTER AT BEDSIDE. REPORT GIVEN TO MHU NURSE.
--- NOTE | 2018-02-08 19:55 | NUR ---
PATIENT TRANSFERRED DOWN TO MHU VIA W/C IN STABLE CONDITION. ALL NEEDS ATTENDED.
--- NOTE | 2018-02-08 20:00 | NUR ---
received patient in room 140-A, from GPS overflow. pt arrived in stable condition.
[2018-02-08 20:30] VITALS: BP 124/78
[2018-02-08] MEDS: ATORVASTATIN 40 MG TABLET PO SCH (20:42)
[2018-02-08] MEDS: MIRTAZAPINE 15 MG TABLET PO SCH (21:52)
--- NOTE | 2018-02-08 22:00 | NUR ---
received to care, anxious, but isolative. states she wants to , but denies feeling suicidal. she contracted for safety, while on the unit. stated that she had been on a methamphetamine binge, and had not slept or ate much, in recent days. a sandwich and juice were given. PRN ativan was given for anxiety, which was effective. as of 0, she appears to be asleep. no distress noted. will continue to monitor closely.
[2018-02-08] MEDS: TEMAZEPAM 7.5 MG CAPSULE PO PRN (22:55)
--- NOTE | 2018-02-08 22:55 | NUR ---
pt is now awake. PRN restoril was given, and she went back to bed.
--- NOTE | 2018-02-08 23:30 | NUR ---
appears to be asleep. no distress noted.
[2018-02-09] MEDS: PANTOPRAZOLE SODIUM 40 MG TABLET.DR PO SCH (06:38)
[2018-02-09] MEDS: LEVOTHYROXINE SODIUM 137 MCG TABLET PO SCH (06:38)
[2018-02-09 07:30] VITALS: BP 140/82
[2018-02-09] MEDS: GABAPENTIN 300 MG CAPSULE PO SCH ×3 (09:06→16:50)
[2018-02-09] MEDS: DIVALPROEX 250 MG TABLET.DR PO SCH ×3 (09:06→16:50)
[2018-02-09] MEDS: QUETIAPINE FUMARATE 100 MG TABLET PO SCH ×3 (09:06→16:52)
[2018-02-09] MEDS: DOCUSATE SODIUM 250 MG CAPSULE PO SCH ×2 (09:06→16:52)
[2018-02-09] MEDS: OXYBUTYNIN XL 5 MG TABSR PO SCH (09:12)
[2018-02-09] MEDS: FLUTICASONE/VILANTEROL 1 EACH BLST.W.DEV IH SCH (09:51)
[2018-02-09] MEDS: LORAZEPAM 0.5 MG TABLET PO PRN ×4 (09:57→22:24)
[2018-02-09 16:50] VITALS: BP 146/78
[2018-02-09] MEDS: RIVAROXABAN 10 MG TABLET PO SCH (16:51)
[2018-02-09 20:00] VITALS: BP 97/70
[2018-02-09 20:15] VITALS: BP 111/70
[2018-02-09] MEDS: MIRTAZAPINE 15 MG TABLET PO SCH (20:47)
[2018-02-09] MEDS: ATORVASTATIN 40 MG TABLET PO SCH (20:47)
[2018-02-09] MEDS: TEMAZEPAM 7.5 MG CAPSULE PO PRN (21:17)
[2018-02-10] MEDS: LEVOTHYROXINE SODIUM 137 MCG TABLET PO SCH (06:39)
[2018-02-10] MEDS: PANTOPRAZOLE SODIUM 40 MG TABLET.DR PO SCH (06:39)
[2018-02-10 07:30] VITALS: BP 129/88
[2018-02-10] MEDS: LORAZEPAM 0.5 MG TABLET PO PRN ×4 (07:51→21:44)
[2018-02-10] MEDS: FLUTICASONE/VILANTEROL 1 EACH BLST.W.DEV IH SCH (08:04)
[2018-02-10] MEDS: OXYBUTYNIN XL 5 MG TABSR PO SCH (08:23)
[2018-02-10] MEDS: GABAPENTIN 300 MG CAPSULE PO SCH ×3 (08:23→16:35)
[2018-02-10] MEDS: QUETIAPINE FUMARATE 100 MG TABLET PO SCH ×3 (08:23→16:35)
[2018-02-10] MEDS: DIVALPROEX 250 MG TABLET.DR PO SCH ×3 (08:23→16:35)
[2018-02-10] MEDS: DOCUSATE SODIUM 250 MG CAPSULE PO SCH ×2 (08:23→16:35)
[2018-02-10] MEDS: ONDANSETRON ODT 4 MG TAB.RAPDIS SL PRN ×2 (08:45→16:35)
[2018-02-10] MEDS: ACETAMINOPHEN 325 MG TABLET PO PRN (12:01)
[2018-02-10] MEDS: HYDROCODONE/APAP 5-325MG TABLET PO PRN ×2 (12:20→18:47)
--- NOTE | 2018-02-10 13:37 | NUR ---
GPS: Nursing Notes: Severe Agitation: Patient is awake and overly disruptive by walking on the hallway and shouting, screaming, agitating other patients, poor impulse control, "I am having a panic attack... This is how I get..", constantly yelling... "Help....Help..", setting limits, removed from stimuli, but continue to be restless, overly disruptive, overflowing the shower, verbal abusive, threatening staff, "Fuck you... I will get you..", loud and angry affect, unable to formulate a viable plan for self care, Dr. Chen plasencia, continue with treatment plan.
[2018-02-10] MEDS ORDERED: OLANZAPINE 10 MG VIAL IM ONE (14:00)
[2018-02-10] MEDS ORDERED: LORAZEPAM 2 MG/1 ML VIAL IM ONE (14:00)
--- NOTE | 2018-02-10 14:05 | NUR ---
GPS: Nursing Notes: Chemical Restraint: Patient continue to be overly disruptive by constantly shouting, getting other patients agitated, continue to be verbal abusive toward staff and peers, poor anger management, poor impulse control, restless, setting limits, but unable to be redirected, disrupting the unit by constantly shouting out of the top of her lungs, medicated with Zyprexa 5mg IM and Ativan 1mg IM x1 STAT per Dr. Siddiqui, respiration is 20, continue to monitor for safety, continue with treatment plan.
--- NOTE | 2018-02-10 14:35 | NUR ---
GPS: Nursing Notes: Reassessment of Chemical Restraint: Patient is calmed, stopped shouting, isolative and withdrawn in her room, following staff directions, resistant with nursing care at times, medications IM STAT were effective, respiration is 18, continue to monitor for safety, continue with treatment plan.
[2018-02-10 16:42] VITALS: BP 151/86
[2018-02-10] MEDS: RIVAROXABAN 10 MG TABLET PO SCH (17:11)
[2018-02-10 19:30] VITALS: BP 110/90
[2018-02-10] MEDS: ATORVASTATIN 40 MG TABLET PO SCH (20:11)
[2018-02-10] MEDS: MIRTAZAPINE 15 MG TABLET PO SCH (20:11)
[2018-02-10] MEDS: TEMAZEPAM 7.5 MG CAPSULE PO PRN (22:44)
[2018-02-11] MEDS: PANTOPRAZOLE SODIUM 40 MG TABLET.DR PO SCH (06:32)
[2018-02-11] MEDS: LEVOTHYROXINE SODIUM 137 MCG TABLET PO SCH (06:32)
--- NOTE | 2018-02-11 06:44 | NUR ---
GPS: Pt.refused lab works ordered for today despite explanation of importance. Unable to be persuaded by staff. Pt.continues to rest at this time. No increased agitation noted.
[2018-02-11 07:30] VITALS: BP 119/73
[2018-02-11] MEDS: ACETAMINOPHEN 325 MG TABLET PO PRN (09:39)
[2018-02-11] MEDS: LORAZEPAM 0.5 MG TABLET PO PRN ×4 (09:39→21:00)
[2018-02-11] MEDS: QUETIAPINE FUMARATE 100 MG TABLET PO SCH ×3 (09:39→16:51)
[2018-02-11] MEDS: DIVALPROEX 250 MG TABLET.DR PO SCH (09:39)
[2018-02-11] MEDS: DOCUSATE SODIUM 250 MG CAPSULE PO SCH ×2 (09:39→16:51)
[2018-02-11] MEDS: OXYBUTYNIN XL 5 MG TABSR PO SCH (09:40)
[2018-02-11] MEDS: GABAPENTIN 300 MG CAPSULE PO SCH ×3 (09:40→16:51)
[2018-02-11] MEDS: ONDANSETRON ODT 4 MG TAB.RAPDIS SL PRN ×2 (09:40→16:51)
[2018-02-11] MEDS: FLUTICASONE/VILANTEROL 1 EACH BLST.W.DEV IH SCH (09:40)
[2018-02-11] MEDS: HYDROCODONE/APAP 5-325MG TABLET PO PRN ×3 (12:09→21:20)
--- NOTE | 2018-02-11 12:58 | NUR ---
UR Note: V Belt Inspector provided clinical information to [employer] Cutter, Christine (ph. [phone] x [phone]; fax [phone]). Tracking#[id number]. Awaiting further authorization. SW will continue to follow-up
[2018-02-11 15:43] VITALS: BP 103/50
[2018-02-11] MEDS: DIVALPROEX 500 MG TABLET.DR PO SCH (16:50)
[2018-02-11] MEDS ORDERED: DIVALPROEX 250 MG TABLET.DR PO SCH ×2 (17:00)
[2018-02-11] MEDS: RIVAROXABAN 10 MG TABLET PO SCH (17:36)
[2018-02-11] MEDS: MAGNESIUM HYDROXIDE 30 ML LIQUID UDC PO PRN (18:33)
[2018-02-11 19:30] VITALS: BP 112/62
[2018-02-11] MEDS: MIRTAZAPINE 15 MG TABLET PO SCH (20:19)
[2018-02-11] MEDS: ATORVASTATIN 40 MG TABLET PO SCH (20:19)
[2018-02-11] MEDS: TEMAZEPAM 7.5 MG CAPSULE PO PRN (22:39)
[2018-02-12] MEDS: LEVOTHYROXINE SODIUM 137 MCG TABLET PO SCH (06:33)
[2018-02-12] MEDS: PANTOPRAZOLE SODIUM 40 MG TABLET.DR PO SCH (06:33)
[2018-02-12 07:30] VITALS: BP 138/78
[2018-02-12 07:39] LABS: BASOPHILS # (AUTO) 0.1 K/uL (0.0-8.0); BASOPHILS % (AUTO) 0.8 % (0.0-2.0); EOSINOPHILS # (AUTO) 0.2 K/uL (0.0-0.7); HEMATOCRIT 43.1 % (31.2-41.9); HEMOGLOBIN 14.3 g/dL (10.9-14.3); LYMPHOCYTES # (AUTO) 2.5 K/uL (20.0-40.0); LYMPHOCYTES % (AUTO) 31.5 % (20.5-51.5); MEAN CORPUSCULAR HEMOGLOBIN 32.4 uug (24.7-32.8); MEAN CORPUSCULAR HGB CONC 33 g/dL (32.3-35.6); MEAN CORPUSCULAR VOLUME 97.5 fL (75.5-95.3); MONOCYTES # (AUTO) 0.7 K/uL (2.0-10.0); MONOCYTES % (AUTO) 8.7 % (0.0-11.0); NEUTROPHILS # (AUTO) 4.4 K/uL (1.8-8.9); PLATELET COUNT (AUTO) 368 K/uL (179-408); RED BLOOD CELL COUNT(AUTO) 4.42 MIL/uL (3.63-4.92); WHITE BLOOD COUNT (AUTO) 7.8 K/uL (3.8-11.8)
[2018-02-12 07:53] LABS: POTASSIUM 3.5 mmol/L (3.5-5.1)
[2018-02-12] MEDS: DIVALPROEX 500 MG TABLET.DR PO SCH ×2 (08:37→17:12)
[2018-02-12] MEDS: QUETIAPINE FUMARATE 100 MG TABLET PO SCH ×3 (08:37→17:12)
[2018-02-12] MEDS: LORAZEPAM 0.5 MG TABLET PO PRN ×3 (08:37→17:12)
[2018-02-12] MEDS: DOCUSATE SODIUM 250 MG CAPSULE PO SCH ×2 (08:38→17:12)
[2018-02-12] MEDS: OXYBUTYNIN XL 5 MG TABSR PO SCH (08:38)
[2018-02-12] MEDS: GABAPENTIN 300 MG CAPSULE PO SCH ×3 (08:38→17:12)
[2018-02-12] MEDS: FLUTICASONE/VILANTEROL 1 EACH BLST.W.DEV IH SCH (08:38)
[2018-02-12] MEDS: ACETAMINOPHEN 325 MG TABLET PO PRN (08:38)
[2018-02-12] MEDS: HYDROCODONE/APAP 5-325MG TABLET PO PRN ×3 (12:21→21:14)
[2018-02-12 16:22] VITALS: BP 120/69
[2018-02-12] MEDS: RIVAROXABAN 10 MG TABLET PO SCH (17:13)
[2018-02-12 20:05] VITALS: BP 121/66
[2018-02-12] MEDS: ATORVASTATIN 40 MG TABLET PO SCH (21:04)
[2018-02-12] MEDS: MIRTAZAPINE 15 MG TABLET PO SCH (21:14)
--- NOTE | 2018-02-12 22:00 | NUR ---
received to care, appering anxious, loud, and demanding at times. needs frequent limit setting. PRN norco was given at 2113 for 02/08 knee pain. as of 2199, she reports good, relief, 5/10. she is in bed. appears to be falling asleep. no distress noted.
[2018-02-12] MEDS: TEMAZEPAM 7.5 MG CAPSULE PO PRN (23:18)
--- NOTE | 2018-02-12 23:18 | NUR ---
PRN RESTORIL GIVEN FOR INSOMNIA
--- NOTE | 2018-02-12 23:45 | NUR ---
appears to be asleep. no distress noted.
[2018-02-13] MEDS: LORAZEPAM 0.5 MG TABLET PO PRN ×4 (05:29→23:03)
[2018-02-13] MEDS: LEVOTHYROXINE SODIUM 137 MCG TABLET PO SCH (06:33)
[2018-02-13] MEDS: PANTOPRAZOLE SODIUM 40 MG TABLET.DR PO SCH (06:34)
[2018-02-13] MEDS: HYDROCODONE/APAP 5-325MG TABLET PO PRN ×4 (06:35→22:02)
--- NOTE | 2018-02-13 06:46 | NUR ---
slept 7.25 hours, total. remains loud and demanding no distress noted.
[2018-02-13 07:30] VITALS: BP 153/84
[2018-02-13] MEDS: DIVALPROEX 500 MG TABLET.DR PO SCH ×2 (09:01→17:23)
[2018-02-13] MEDS: DOCUSATE SODIUM 250 MG CAPSULE PO SCH ×2 (09:02→17:23)
[2018-02-13] MEDS: QUETIAPINE FUMARATE 100 MG TABLET PO SCH ×3 (09:02→17:23)
[2018-02-13] MEDS: GABAPENTIN 300 MG CAPSULE PO SCH ×3 (09:02→17:23)
[2018-02-13] MEDS: FLUTICASONE/VILANTEROL 1 EACH BLST.W.DEV IH SCH (09:03)
[2018-02-13] MEDS: OXYBUTYNIN XL 5 MG TABSR PO SCH (09:03)
--- NOTE | 2018-02-13 10:55 | NUR ---
UR Note: VALERIA faxed updated clinicals to [facility] ARIEL Student Activities Director, Christine (f. [phone]; ph [phone]). Tracking# [id number]. VALERIA will continue to follow-up.
[2018-02-13] MEDS: ACETAMINOPHEN 325 MG TABLET PO PRN (11:56)
[2018-02-13] MEDS: MAGNESIUM HYDROXIDE 30 ML LIQUID UDC PO PRN (14:48)
[2018-02-13 15:43] VITALS: BP 102/65
[2018-02-13] MEDS: RIVAROXABAN 10 MG TABLET PO SCH (17:54)
[2018-02-13 19:30] VITALS: BP 110/65
[2018-02-13] MEDS: MIRTAZAPINE 15 MG TABLET PO SCH (20:40)
[2018-02-13] MEDS: ATORVASTATIN 40 MG TABLET PO SCH (20:40)
--- NOTE | 2018-02-13 22:03 | NUR ---
gps: patient c/o left back and right knee pain norco 1 tab po given per patient requested.
--- NOTE | 2018-02-13 23:04 | NUR ---
GPS: PATIENT C/O ANXIETY. ATIVAN 0.5 MG PO GIVEN.
--- NOTE | 2018-02-13 23:05 | NUR ---
GPS: PATIENT STATED I AM FEELING BETTER NOW. PRN EFFECTIVE FOR PAIN.
[2018-02-14] MEDS: HYDROCODONE/APAP 5-325MG TABLET PO PRN ×3 (05:02→18:49)
--- NOTE | 2018-02-14 06:16 | NUR ---
GPS: REMAIN CALM AND COOPERATIVE WITH MEDS AND CARE. SLEPT 6 HRS THROUGH THE NIGHT.
[2018-02-14] MEDS: LEVOTHYROXINE SODIUM 137 MCG TABLET PO SCH (06:23)
[2018-02-14] MEDS: PANTOPRAZOLE SODIUM 40 MG TABLET.DR PO SCH (06:23)
[2018-02-14] MEDS: OXYBUTYNIN XL 5 MG TABSR PO SCH (08:58)
[2018-02-14] MEDS: FLUTICASONE/VILANTEROL 1 EACH BLST.W.DEV IH SCH (08:58)
[2018-02-14] MEDS: QUETIAPINE FUMARATE 100 MG TABLET PO SCH ×3 (08:59→17:13)
[2018-02-14] MEDS: DOCUSATE SODIUM 250 MG CAPSULE PO SCH ×2 (08:59→17:13)
[2018-02-14] MEDS: DIVALPROEX 500 MG TABLET.DR PO SCH ×2 (08:59→17:13)
[2018-02-14] MEDS: GABAPENTIN 300 MG CAPSULE PO SCH ×3 (08:59→17:13)
[2018-02-14] MEDS: LORAZEPAM 0.5 MG TABLET PO PRN ×3 (10:13→21:12)
[2018-02-14 15:10] VITALS: BP 128/75
[2018-02-14] MEDS: RIVAROXABAN 10 MG TABLET PO SCH (17:17)
[2018-02-14 20:00] VITALS: BP 99/65
[2018-02-14] MEDS: MIRTAZAPINE 15 MG TABLET PO SCH (20:13)
[2018-02-14] MEDS: ATORVASTATIN 40 MG TABLET PO SCH (20:13)
--- NOTE | 2018-02-14 21:13 | NUR ---
GPS: PATIENT C/O ANXIETY. ATIVAN 0.5 MG PO GIVEN.
--- NOTE | 2018-02-14 22:13 | NUR ---
GPS: PATIENT IS CALM NOW. PRN EFFECTIVE FOR ANXIETY.
[2018-02-15] MEDS: HYDROCODONE/APAP 5-325MG TABLET PO PRN ×2 (05:05→10:40)
--- NOTE | 2018-02-15 06:20 | NUR ---
GPS: REMAIN CALM AND COOPERATIVE. SLEPT 7 HRS THROUGH THE NIGHT. PAIN MEDS GIVEN X1. CONTINUE MONITOR FOR SAFETY.
[2018-02-15] MEDS: PANTOPRAZOLE SODIUM 40 MG TABLET.DR PO SCH (06:32)
[2018-02-15] MEDS: LEVOTHYROXINE SODIUM 137 MCG TABLET PO SCH (06:32)
[2018-02-15 08:00] VITALS: BP 141/76
[2018-02-15] MEDS: FLUTICASONE/VILANTEROL 1 EACH BLST.W.DEV IH SCH (08:06)
[2018-02-15] MEDS: DIVALPROEX 500 MG TABLET.DR PO SCH (08:06)
[2018-02-15] MEDS: DOCUSATE SODIUM 250 MG CAPSULE PO SCH (08:06)
[2018-02-15] MEDS: GABAPENTIN 300 MG CAPSULE PO SCH (08:07)
[2018-02-15] MEDS: QUETIAPINE FUMARATE 100 MG TABLET PO SCH (08:07)
[2018-02-15] MEDS: OXYBUTYNIN XL 5 MG TABSR PO SCH (08:09)
[2018-02-15] MEDS: LORAZEPAM 0.5 MG TABLET PO PRN (09:36)
--- NOTE | 2018-02-15 10:26 | NUR ---
Discharge Note: Patient will be discharged back to [facility] [[address] [place] [address]; [phone]] via taxi. Spoke with Lizzy at the facility who states they are ready to accept the patient back today. Patient is aware and agreeable with discharge plans. Patient will see Dr. Marin (Psychiatrist) on , February 21, 2018 @4:30pm [[address] [place] [address]; [phone]]. Patient will also continue to follow-up with her Primary Care Physician Dr. Sean Pickering [[address], [place] [address]; ]. Patient was referred to individual therapy with Dr. Orin Harris [[address] [place] [address]; [phone]], and will make an appointment. Patient was provided with a brief substance abuse intervention and referred to [facility] , [facility] , and [facility] . Patient was provided with outpatient mental health referrals for [facility] Crisis Line ( ), Steffi Baca ( ), and National Suicide Prevention Lifeline ( ).
--- NOTE | 2018-02-15 12:00 | NUR ---
1000 Called [facility]- spoke with Kimberli, medication nurse informed about medications to continue upon discharged, prescription both medical and psychiatric meds given and instructed med nurse to be filled to patient pharmacy- staff verbalized understanding. 1100 Also discharged instructions given to patient and valuables , patient own medication returned and signed.1145 Disscharged patient via taxi in fair condition. Patient alert and ox4, denies SI/HI. No hallucination. No dellusion noted.
--- NOTE | 2018-02-15 13:19 | NUR ---
UR Note: [facility] (f [phone]; [phone]) Tracking # [id number]. Awaiting final authorization. VALERIA will continue to follow-up. Addendum: 02/15/18 at 1446 by DIEGO BAJWA Received call back from Christine. Provided AUTH#[id number] for patient's stay.
== END 2018-02-15 11:45 | DRG 885 ==
LOC: GPSOV 16:26 → GPS 02-08 20:00
PROVIDERS: ADMIT Psychiatry & Neurology Psychiatry; ATTEND Nurse Practitioner Acute Care
DX: F31.60 Bipolar disorder, current episode mixed, unspecified (principal); E44.1 Mild protein-calorie malnutrition; Z91.5 Personal history of self-harm; G89.4 Chronic pain syndrome; Z86.711 Personal history of pulmonary embolism; Z79.01 Long term (current) use of anticoagulants; E78.5 Hyperlipidemia, unspecified; M54.5 Low back pain; E03.9 Hypothyroidism, unspecified; E66.9 Obesity, unspecified; Z68.29 Body mass index [BMI] 29.0-29.9, adult; F15.10 Other stimulant abuse, uncomplicated; F43.10 Post-traumatic stress disorder, unspecified; Z86.73 Personal history of transient ischemic attack (TIA), and cerebral infarction without residual deficits; Z79.899 Other long term (current) drug therapy; Z91.19 Patient's noncompliance with other medical treatment and regimen; F41.0 Panic disorder [episodic paroxysmal anxiety]; I10 Essential (primary) hypertension
CPT/HCPCS: 36415; 80164; 85025; J2060; J2270; J2358; J3490; Q0162

== ENCOUNTER 2018-02-19 09:59 | Inpatient (IN) | payer OTHER, MEDICAID ==
[~2018-02-19] VITALS: Ht 160 cm; Wt 79.8 kg
[~2018-02-19 09:59] MED LIST changes: -CARI350T PO; -CELE200C PO; -CLON0.5T12 PO; -DIVA250T4 PO; -DULO60CA45 PO; +HYDR-3326 PO; -METH10TA2 PO; -MIRT30TA7 PO; -OXYC-451 PO; +PANT40TA2 PO; -QUET100T PO
[2018-02-19 10:42] LABS: BASOPHILS # (AUTO) 0.1 K/uL (0.0-8.0); EOSINOPHILS # (AUTO) 0.1 K/uL (0.0-0.7); EOSINOPHILS % (AUTO) 0.7 % (0.0-7.0); HEMATOCRIT 42.7 % (31.2-41.9); HEMOGLOBIN 14.6 g/dL (10.9-14.3); LYMPHOCYTES # (AUTO) 2.2 K/uL (20.0-40.0); LYMPHOCYTES % (AUTO) 24.1 % (20.5-51.5); MEAN CORPUSCULAR HEMOGLOBIN 33.1 uug (24.7-32.8); MEAN CORPUSCULAR HGB CONC 34 g/dL (32.3-35.6); MEAN CORPUSCULAR VOLUME 96.8 fL (75.5-95.3); MONOCYTES # (AUTO) 0.5 K/uL (2.0-10.0); MONOCYTES % (AUTO) 5.4 % (0.0-11.0); NEUTROPHILS # (AUTO) 6.3 K/uL (1.8-8.9); NEUTROPHILS % (AUTO) 68.8 % (38.5-71.5); PLATELET COUNT (AUTO) 322 K/uL (179-408); RED BLOOD CELL COUNT(AUTO) 4.42 MIL/uL (3.63-4.92); WHITE BLOOD COUNT (AUTO) 9.2 K/uL (3.8-11.8)
[2018-02-19 10:49] LABS: CARBON DIOXIDE 30 mmol/L (21-32); CHLORIDE 103 mmol/L (98-107); CREATININE 0.8 mg/dL (0.6-1.3); GLUCOSE 100 mg/dL (74-106); POTASSIUM 4.2 mmol/L (3.5-5.1); UREA NITROGEN, BLOOD 9 mg/dL (7-18)
[2018-02-19] MEDS ORDERED: DIVA500T2 PO (10:49)
[2018-02-19] MEDS ORDERED: QUET100T PO (10:49)
[2018-02-19] MEDS ORDERED: DULO60CA45 PO (10:49)
[2018-02-19] MEDS ORDERED: MIRT30TA7 PO (10:49)
[2018-02-19 10:55] LABS: ALANINE AMINOTRANSFERASE 12 U/L (14-59); ALKALINE PHOSPHATASE 74 U/L (50-136); ASPARTATE AMINOTRANSFERASE 13 U/L (15-37); BILIRUBIN,DIRECT 0.1 mg/dL (0.0-0.2); BILIRUBIN,TOTAL 0.3 mg/dL (0.2-1.0); TOTAL PROTEIN, SERUM 7.1 g/dL (6.4-8.2)
[2018-02-19 11:03] LABS: *BILIRUBIN,URIN NEGATIVE (NEGATIVE); *BLOOD, URINE NEGATIVE (NEGATIVE); *CLARITY,URINE SLIGHTLY CLOUDY (CLEAR); *COLOR,URINE YELLOW (YELLOW); *KETONES,URINE NEGATIVE (NEGATIVE); *PROTEIN,URINE NEGATIVE (NEGATIVE); *UROBILINOGEN,URINE 0.2 E.U./dl (NORMAL); LEUKOCYTE ESTERASE ,URINE 2+ (NEGATIVE); NITRITE, URINE NEGATIVE (NEGATIVE); PH,URINE 8.5 (5.0-8.0); UGLUCOSE NEGATIVE (NEGATIVE)
[2018-02-19 11:13] LABS: THYROID STIMULATING HORMONE 1.286 mIU/mL (0.358-3.740)
[2018-02-19 11:15] LABS: BACTERIA,URINE FEW /HPF (NONE SEEN); SQUAMOUS EPITHELIAL CELL,UR MANY /HPF (NONE SEEN)
[2018-02-19 11:26] LABS: ETHANOL < 3 MG/DL (0-0)
[2018-02-19] MEDS ORDERED: ONDANSETRON ODT 4 MG TAB.RAPDIS ONE (11:55)
[2018-02-19] MEDS ORDERED: LORAZEPAM 0.5 MG TABLET ONE (11:55)
[2018-02-19] MEDS ORDERED: LORAZEPAM 0.5 MG TABLET PO ONE (12:00)
[2018-02-19] MEDS ORDERED: ONDANSETRON ODT 4 MG TAB.RAPDIS SL ONE (12:00)
[2018-02-19 12:20] LABS: *AMPHETAMINE, URINE NEGATIVE (NEGATIVE); *BARBITURATE, URINE NEGATIVE (NEGATIVE); *CANNABINOID, URINE POSITIVE (NEGATIVE); *COCCAINE, URINE NEGATIVE (NEGATIVE); *OPIATE, URINE NEGATIVE (NEGATIVE); *PHENCYCLIDINE SCREEN,URINE NEGATIVE (NEGATIVE)
[2018-02-19] MEDS ORDERED: MAG HYDROX/AL HYDROX/SIMETH 30 ML LIQUID UDC PO PRN (14:30)
[2018-02-19 15:25] VITALS: BP 154/87
[2018-02-19] MEDS: QUETIAPINE FUMARATE 100 MG TABLET PO SCH ×2 (16:44→20:08)
[2018-02-19] MEDS: MIRTAZAPINE 15 MG TABLET PO SCH (20:08)
[2018-02-19] MEDS: DIVALPROEX 500 MG TABLET.DR PO SCH (20:08)
[2018-02-19 20:37] VITALS: BP 166/81
[2018-02-19] MEDS: ATORVASTATIN 40 MG TABLET PO SCH (20:51)
[2018-02-19] MEDS: SULFAMETH/TRIMETH 800/160 MG TABLET PO SCH (20:51)
[2018-02-19] MEDS: LORAZEPAM 0.5 MG TABLET PO PRN (23:40)
[2018-02-20] MEDS: TEMAZEPAM 7.5 MG CAPSULE PO PRN (00:19)
[2018-02-20] MEDS ORDERED: diphenhydrAMINE 50 MG/1 ML VIAL IM ONE (03:00)
[2018-02-20] MEDS ORDERED: LORAZEPAM 2 MG/1 ML VIAL IM ONE (03:00)
[2018-02-20] MEDS ORDERED: OLANZAPINE 10 MG VIAL IM ONE (03:00)
[2018-02-20] MEDS: ONDANSETRON HCL 4 MG TABLET PO PRN ×2 (06:17→13:13)
[2018-02-20] MEDS: LEVOTHYROXINE SODIUM 137 MCG TABLET PO SCH (06:17)
[2018-02-20] MEDS: PANTOPRAZOLE SODIUM 40 MG TABLET.DR PO SCH (08:51)
[2018-02-20] MEDS: DIVALPROEX 500 MG TABLET.DR PO SCH ×2 (08:51→21:59)
[2018-02-20] MEDS: DOCUSATE SODIUM 250 MG CAPSULE PO SCH ×2 (08:51→16:57)
[2018-02-20] MEDS: QUETIAPINE FUMARATE 100 MG TABLET PO SCH ×3 (08:51→21:59)
[2018-02-20] MEDS: GABAPENTIN 300 MG CAPSULE PO SCH ×3 (08:51→16:57)
[2018-02-20] MEDS: SULFAMETH/TRIMETH 800/160 MG TABLET PO SCH ×2 (08:51→21:59)
[2018-02-20] MEDS ORDERED: OXYBUTYNIN XL 5 MG TABSR PO SCH (09:00)
[2018-02-20] MEDS ORDERED: CLONIDINE HCL 0.1 MG TABLET PO PRN (11:30)
[2018-02-20] MEDS: NEOMY/BACITRAC/POLYMI OINT 28.35 GM TUBE TOP SCH ×2 (12:58→16:59)
[2018-02-20] MEDS: FLUTICASONE/VILANTEROL 1 EACH BLST.W.DEV IH SCH (12:58)
[2018-02-20] MEDS: AMLODIPINE 5 MG TABLET PO SCH (13:29)
[2018-02-20 16:55] VITALS: BP 133/85
[2018-02-20] MEDS: RIVAROXABAN 10 MG TABLET PO SCH (17:03)
[2018-02-20] MEDS: MIRTAZAPINE 15 MG TABLET PO SCH (21:59)
[2018-02-20] MEDS: ATORVASTATIN 40 MG TABLET PO SCH (21:59)
[2018-02-21] MEDS: LORAZEPAM 0.5 MG TABLET PO PRN (06:58)
[2018-02-21] MEDS: LEVOTHYROXINE SODIUM 137 MCG TABLET PO SCH (06:58)
[2018-02-21 07:11] LABS: BASOPHILS # (AUTO) 0.1 K/uL (0.0-8.0); BASOPHILS % (AUTO) 0.7 % (0.0-2.0); EOSINOPHILS % (AUTO) 0.5 % (0.0-7.0); HEMATOCRIT 45.7 % (31.2-41.9); HEMOGLOBIN 15.5 g/dL (10.9-14.3); LYMPHOCYTES # (AUTO) 1.9 K/uL (20.0-40.0); LYMPHOCYTES % (AUTO) 19.2 % (20.5-51.5); MEAN CORPUSCULAR HEMOGLOBIN 32.9 uug (24.7-32.8); MEAN CORPUSCULAR HGB CONC 34 g/dL (32.3-35.6); MONOCYTES # (AUTO) 0.9 K/uL (2.0-10.0); MONOCYTES % (AUTO) 8.6 % (0.0-11.0); NEUTROPHILS # (AUTO) 7.1 K/uL (1.8-8.9); PLATELET COUNT (AUTO) 345 K/uL (179-408); RED BLOOD CELL COUNT(AUTO) 4.71 MIL/uL (3.63-4.92)
[2018-02-21 07:30] VITALS: BP 98/66
[2018-02-21 07:41] LABS: THYROID STIMULATING HORMONE 0.916 mIU/mL (0.358-3.740)
[2018-02-21 07:54] LABS: BILIRUBIN,TOTAL 0.4 mg/dL (0.2-1.0); CREATININE 1.1 mg/dL (0.6-1.3); MAGNESIUM 2.4 mg/dL (1.8-2.4); POTASSIUM 4.5 mmol/L (3.5-5.1); TOTAL PROTEIN, SERUM 7.3 g/dL (6.4-8.2)
[2018-02-21] MEDS: FLUTICASONE/VILANTEROL 1 EACH BLST.W.DEV IH SCH (08:21)
[2018-02-21] MEDS: NEOMY/BACITRAC/POLYMI OINT 28.35 GM TUBE TOP SCH ×2 (08:21→18:12)
[2018-02-21] MEDS: DIVALPROEX 500 MG TABLET.DR PO SCH ×2 (08:22→20:26)
[2018-02-21] MEDS: QUETIAPINE FUMARATE 100 MG TABLET PO SCH ×3 (08:22→21:57)
[2018-02-21] MEDS: SULFAMETH/TRIMETH 800/160 MG TABLET PO SCH ×2 (08:22→20:26)
[2018-02-21] MEDS: DOCUSATE SODIUM 250 MG CAPSULE PO SCH ×2 (08:22→18:12)
[2018-02-21] MEDS: ONDANSETRON HCL 4 MG TABLET PO PRN ×2 (08:22→22:31)
[2018-02-21] MEDS: PANTOPRAZOLE SODIUM 40 MG TABLET.DR PO SCH (08:22)
[2018-02-21] MEDS: GABAPENTIN 300 MG CAPSULE PO SCH ×3 (08:22→17:00)
[2018-02-21] MEDS: AMLODIPINE 5 MG TABLET PO SCH (08:23)
[2018-02-21] MEDS: OMEGA-3 FATTY ACIDS/FISH OIL CAPSULE PO SCH ×2 (12:07→20:26)
[2018-02-21 16:55] VITALS: BP 103/66
[2018-02-21] MEDS: RIVAROXABAN 10 MG TABLET PO SCH (18:13)
[2018-02-21 20:00] VITALS: BP 88/55
[2018-02-21] MEDS: ATORVASTATIN 40 MG TABLET PO SCH (20:26)
[2018-02-21] MEDS: ACETAMINOPHEN 325 MG TABLET PO PRN (20:26)
[2018-02-21] MEDS: MIRTAZAPINE 15 MG TABLET PO SCH (20:26)
[2018-02-21 20:30] VITALS: BP 123/63
[2018-02-21 21:30] VITALS: BP 134/78
[2018-02-22 01:00] VITALS: BP 122/66
[2018-02-22] MEDS: LORAZEPAM 0.5 MG TABLET PO PRN ×3 (01:01→16:04)
[2018-02-22] MEDS: TEMAZEPAM 7.5 MG CAPSULE PO PRN (02:02)
[2018-02-22 06:20] VITALS: BP 132/80
[2018-02-22] MEDS: LEVOTHYROXINE SODIUM 137 MCG TABLET PO SCH (06:20)
[2018-02-22 07:30] VITALS: BP 120/71
[2018-02-22] MEDS: OMEGA-3 FATTY ACIDS/FISH OIL CAPSULE PO SCH ×2 (08:11→20:41)
[2018-02-22] MEDS: DOCUSATE SODIUM 250 MG CAPSULE PO SCH ×2 (08:11→16:46)
[2018-02-22] MEDS: FLUTICASONE/VILANTEROL 1 EACH BLST.W.DEV IH SCH (08:11)
[2018-02-22] MEDS: GABAPENTIN 300 MG CAPSULE PO SCH ×3 (08:11→18:19)
[2018-02-22] MEDS: SULFAMETH/TRIMETH 800/160 MG TABLET PO SCH ×2 (08:11→20:41)
[2018-02-22] MEDS: DIVALPROEX 500 MG TABLET.DR PO SCH ×2 (08:11→20:41)
[2018-02-22] MEDS: QUETIAPINE FUMARATE 100 MG TABLET PO SCH ×3 (08:11→21:00)
[2018-02-22] MEDS: PANTOPRAZOLE SODIUM 40 MG TABLET.DR PO SCH (08:12)
[2018-02-22] MEDS: AMLODIPINE 5 MG TABLET PO SCH (09:00)
[2018-02-22] MEDS: ACETAMINOPHEN 325 MG TABLET PO PRN (09:45)
[2018-02-22] MEDS: ONDANSETRON HCL 4 MG TABLET PO PRN ×2 (09:45→16:45)
[2018-02-22] MEDS: NEOMY/BACITRAC/POLYMI OINT 28.35 GM TUBE TOP SCH ×2 (09:45→17:14)
[2018-02-22 15:29] VITALS: BP 119/81
[2018-02-22] MEDS: RIVAROXABAN 10 MG TABLET PO SCH (17:16)
[2018-02-22 20:00] VITALS: BP 101/61
[2018-02-22] MEDS: ATORVASTATIN 40 MG TABLET PO SCH (20:41)
[2018-02-22] MEDS: MIRTAZAPINE 15 MG TABLET PO SCH (20:41)
[2018-02-23 00:25] VITALS: BP 124/82
[2018-02-23] MEDS: QUETIAPINE FUMARATE 100 MG TABLET PO SCH ×4 (00:30→21:53)
[2018-02-23] MEDS: LORAZEPAM 0.5 MG TABLET PO PRN ×4 (03:10→16:27)
[2018-02-23] MEDS: LEVOTHYROXINE SODIUM 137 MCG TABLET PO SCH (06:02)
[2018-02-23 07:30] VITALS: BP 115/74
[2018-02-23] MEDS: ACETAMINOPHEN 325 MG TABLET PO PRN ×2 (07:51→16:27)
[2018-02-23] MEDS: ONDANSETRON HCL 4 MG TABLET PO PRN ×2 (07:51→16:27)
[2018-02-23] MEDS: PANTOPRAZOLE SODIUM 40 MG TABLET.DR PO SCH (08:14)
[2018-02-23] MEDS: DIVALPROEX 500 MG TABLET.DR PO SCH ×2 (08:15→21:53)
[2018-02-23] MEDS: GABAPENTIN 300 MG CAPSULE PO SCH ×3 (08:15→16:27)
[2018-02-23] MEDS: SULFAMETH/TRIMETH 800/160 MG TABLET PO SCH ×2 (08:15→21:55)
[2018-02-23] MEDS: DOCUSATE SODIUM 250 MG CAPSULE PO SCH ×2 (08:15→16:27)
[2018-02-23] MEDS: OMEGA-3 FATTY ACIDS/FISH OIL CAPSULE PO SCH ×2 (08:15→21:53)
[2018-02-23] MEDS: FLUTICASONE/VILANTEROL 1 EACH BLST.W.DEV IH SCH (08:19)
[2018-02-23] MEDS: NEOMY/BACITRAC/POLYMI OINT 28.35 GM TUBE TOP SCH ×2 (08:19→16:28)
[2018-02-23 13:00] VITALS: BP 107/68
[2018-02-23] MEDS: MAGNESIUM HYDROXIDE 30 ML LIQUID UDC PO PRN (13:32)
[2018-02-23] MEDS: RIVAROXABAN 10 MG TABLET PO SCH (18:08)
[2018-02-23 20:00] VITALS: BP 101/67
[2018-02-23] MEDS: ATORVASTATIN 40 MG TABLET PO SCH (21:53)
[2018-02-23] MEDS: MIRTAZAPINE 15 MG TABLET PO SCH (21:53)
[2018-02-24] MEDS: LEVOTHYROXINE SODIUM 137 MCG TABLET PO SCH (06:35)
[2018-02-24] MEDS: LORAZEPAM 0.5 MG TABLET PO PRN ×3 (06:42→16:16)
[2018-02-24 07:12] LABS: BASOPHILS # (AUTO) 0.1 K/uL (0.0-8.0); BASOPHILS % (AUTO) 0.7 % (0.0-2.0); EOSINOPHILS # (AUTO) 0.1 K/uL (0.0-0.7); EOSINOPHILS % (AUTO) 1.2 % (0.0-7.0); HEMATOCRIT 44.5 % (31.2-41.9); HEMOGLOBIN 15.1 g/dL (10.9-14.3); LYMPHOCYTES # (AUTO) 2.4 K/uL (20.0-40.0); MEAN CORPUSCULAR HEMOGLOBIN 32.9 uug (24.7-32.8); MEAN CORPUSCULAR HGB CONC 34 g/dL (32.3-35.6); MEAN CORPUSCULAR VOLUME 96.8 fL (75.5-95.3); MONOCYTES # (AUTO) 0.6 K/uL (2.0-10.0); MONOCYTES % (AUTO) 7.9 % (0.0-11.0); NEUTROPHILS # (AUTO) 4.7 K/uL (1.8-8.9); NEUTROPHILS % (AUTO) 60.2 % (38.5-71.5); PLATELET COUNT (AUTO) 313 K/uL (179-408); RED BLOOD CELL COUNT(AUTO) 4.59 MIL/uL (3.63-4.92); WHITE BLOOD COUNT (AUTO) 7.8 K/uL (3.8-11.8)
[2018-02-24 07:27] LABS: BILIRUBIN,TOTAL 0.3 mg/dL (0.2-1.0); MAGNESIUM 2.3 mg/dL (1.8-2.4); PHOSPHOROUS 3.3 mg/dL (2.5-4.9); POTASSIUM 5.2 mmol/L (3.5-5.1); TOTAL PROTEIN, SERUM 7.4 g/dL (6.4-8.2)
[2018-02-24 07:30] VITALS: BP 143/88
[2018-02-24 07:41] LABS: THYROID STIMULATING HORMONE 2.946 mIU/mL (0.358-3.740)
[2018-02-24] MEDS: FLUTICASONE/VILANTEROL 1 EACH BLST.W.DEV IH SCH (08:06)
[2018-02-24] MEDS: NEOMY/BACITRAC/POLYMI OINT 28.35 GM TUBE TOP SCH ×2 (08:06→16:17)
[2018-02-24] MEDS: DIVALPROEX 500 MG TABLET.DR PO SCH ×2 (08:06→20:13)
[2018-02-24] MEDS: QUETIAPINE FUMARATE 100 MG TABLET PO SCH ×3 (08:06→20:13)
[2018-02-24] MEDS: ACETAMINOPHEN 325 MG TABLET PO PRN ×2 (08:07→16:16)
[2018-02-24] MEDS: PANTOPRAZOLE SODIUM 40 MG TABLET.DR PO SCH (08:07)
[2018-02-24] MEDS: DOCUSATE SODIUM 250 MG CAPSULE PO SCH ×2 (08:07→16:16)
[2018-02-24] MEDS: OMEGA-3 FATTY ACIDS/FISH OIL CAPSULE PO SCH ×2 (08:07→20:13)
[2018-02-24] MEDS: ONDANSETRON HCL 4 MG TABLET PO PRN ×2 (08:07→16:16)
[2018-02-24] MEDS: GABAPENTIN 300 MG CAPSULE PO SCH ×3 (08:07→16:16)
[2018-02-24] MEDS: SULFAMETH/TRIMETH 800/160 MG TABLET PO SCH ×2 (08:07→20:13)
[2018-02-24 15:19] VITALS: BP 107/65
[2018-02-24] MEDS: RIVAROXABAN 10 MG TABLET PO SCH (17:51)
[2018-02-24 20:00] VITALS: BP 98/67
[2018-02-24] MEDS: ATORVASTATIN 40 MG TABLET PO SCH (20:13)
[2018-02-24] MEDS: MIRTAZAPINE 15 MG TABLET PO SCH (20:13)
[2018-02-25] MEDS: TEMAZEPAM 7.5 MG CAPSULE PO PRN (00:06)
[2018-02-25] MEDS: LEVOTHYROXINE SODIUM 137 MCG TABLET PO SCH (06:28)
[2018-02-25 07:30] VITALS: BP 146/89
[2018-02-25] MEDS: LORAZEPAM 0.5 MG TABLET PO PRN ×4 (07:55→23:20)
[2018-02-25] MEDS: ACETAMINOPHEN 325 MG TABLET PO PRN (07:55)
[2018-02-25] MEDS: ONDANSETRON HCL 4 MG TABLET PO PRN ×2 (07:55→16:17)
[2018-02-25] MEDS: OMEGA-3 FATTY ACIDS/FISH OIL CAPSULE PO SCH ×2 (08:14→21:01)
[2018-02-25] MEDS: DOCUSATE SODIUM 250 MG CAPSULE PO SCH ×2 (08:14→16:16)
[2018-02-25] MEDS: PANTOPRAZOLE SODIUM 40 MG TABLET.DR PO SCH (08:14)
[2018-02-25] MEDS: SULFAMETH/TRIMETH 800/160 MG TABLET PO SCH ×2 (08:14→21:01)
[2018-02-25] MEDS: GABAPENTIN 300 MG CAPSULE PO SCH ×3 (08:14→16:16)
[2018-02-25] MEDS: QUETIAPINE FUMARATE 100 MG TABLET PO SCH ×3 (08:14→22:01)
[2018-02-25] MEDS: DIVALPROEX 500 MG TABLET.DR PO SCH ×2 (08:14→21:01)
[2018-02-25] MEDS: NEOMY/BACITRAC/POLYMI OINT 28.35 GM TUBE TOP SCH ×2 (08:15→16:17)
[2018-02-25] MEDS: FLUTICASONE/VILANTEROL 1 EACH BLST.W.DEV IH SCH (08:15)
[2018-02-25] MEDS: MAGNESIUM HYDROXIDE 30 ML LIQUID UDC PO PRN (09:17)
[2018-02-25] MEDS ORDERED: BISACODYL 10 MG SUPP.RECT RC PRN (13:30)
[2018-02-25] MEDS: NICOTINE 21 MG/24HR PATCH TD SCH (13:42)
[2018-02-25] MEDS: HYDROCODONE/APAP 5-325MG TABLET PO PRN ×2 (14:47→21:11)
[2018-02-25 16:59] VITALS: BP 120/84
[2018-02-25] MEDS: RIVAROXABAN 10 MG TABLET PO SCH (17:54)
[2018-02-25 19:30] VITALS: BP 114/41
[2018-02-25] MEDS: ATORVASTATIN 40 MG TABLET PO SCH (21:01)
[2018-02-25] MEDS: MIRTAZAPINE 15 MG TABLET PO SCH (21:05)
[2018-02-25 21:58] VITALS: BP 120/68
[2018-02-26] MEDS: HYDROCODONE/APAP 5-325MG TABLET PO PRN ×3 (06:07→17:58)
[2018-02-26] MEDS: LEVOTHYROXINE SODIUM 137 MCG TABLET PO SCH (06:07)
[2018-02-26 08:30] VITALS: BP 119/85
[2018-02-26] MEDS: SULFAMETH/TRIMETH 800/160 MG TABLET PO SCH (08:34)
[2018-02-26] MEDS: DIVALPROEX 500 MG TABLET.DR PO SCH ×2 (08:34→20:34)
[2018-02-26] MEDS: GABAPENTIN 300 MG CAPSULE PO SCH ×3 (08:34→16:29)
[2018-02-26] MEDS: NICOTINE 21 MG/24HR PATCH TD SCH (08:34)
[2018-02-26] MEDS: PANTOPRAZOLE SODIUM 40 MG TABLET.DR PO SCH (08:34)
[2018-02-26] MEDS: DOCUSATE SODIUM 250 MG CAPSULE PO SCH ×2 (08:34→16:29)
[2018-02-26] MEDS: OMEGA-3 FATTY ACIDS/FISH OIL CAPSULE PO SCH ×2 (08:34→20:35)
[2018-02-26] MEDS: ONDANSETRON HCL 4 MG TABLET PO PRN ×2 (08:34→16:29)
[2018-02-26] MEDS: LORAZEPAM 0.5 MG TABLET PO PRN ×4 (08:35→21:49)
[2018-02-26] MEDS: QUETIAPINE FUMARATE 100 MG TABLET PO SCH ×3 (08:35→21:55)
[2018-02-26] MEDS: FLUTICASONE/VILANTEROL 1 EACH BLST.W.DEV IH SCH (08:42)
[2018-02-26] MEDS: NEOMY/BACITRAC/POLYMI OINT 28.35 GM TUBE TOP SCH ×2 (08:42→16:30)
[2018-02-26 17:20] VITALS: BP 116/65
[2018-02-26] MEDS: RIVAROXABAN 10 MG TABLET PO SCH (17:56)
[2018-02-26 19:50] VITALS: BP 106/67
[2018-02-26] MEDS: MIRTAZAPINE 15 MG TABLET PO SCH (20:35)
[2018-02-26] MEDS: ATORVASTATIN 40 MG TABLET PO SCH (20:35)
[2018-02-27] MEDS: HYDROCODONE/APAP 5-325MG TABLET PO PRN ×2 (01:24→07:33)
[2018-02-27] MEDS: LORAZEPAM 0.5 MG TABLET PO PRN ×2 (02:16→09:34)
[2018-02-27] MEDS: LEVOTHYROXINE SODIUM 137 MCG TABLET PO SCH (06:57)
[2018-02-27 07:30] VITALS: BP 151/78
[2018-02-27] MEDS: NICOTINE 21 MG/24HR PATCH TD SCH (08:51)
[2018-02-27] MEDS: FLUTICASONE/VILANTEROL 1 EACH BLST.W.DEV IH SCH (08:51)
[2018-02-27] MEDS: OMEGA-3 FATTY ACIDS/FISH OIL CAPSULE PO SCH (08:52)
[2018-02-27] MEDS: QUETIAPINE FUMARATE 100 MG TABLET PO SCH (08:52)
[2018-02-27] MEDS: PANTOPRAZOLE SODIUM 40 MG TABLET.DR PO SCH (08:52)
[2018-02-27] MEDS: DOCUSATE SODIUM 250 MG CAPSULE PO SCH (08:52)
[2018-02-27] MEDS: NEOMY/BACITRAC/POLYMI OINT 28.35 GM TUBE TOP SCH (08:52)
[2018-02-27] MEDS: DIVALPROEX 500 MG TABLET.DR PO SCH (08:52)
[2018-02-27] MEDS: GABAPENTIN 300 MG CAPSULE PO SCH (08:52)
== END 2018-02-27 11:30 | DRG 885 ==
LOC: ER 09:59 → GPS 13:11
PROVIDERS: ADMIT Psychiatry & Neurology Psychiatry; ATTEND Nurse Practitioner Acute Care
DX: F31.60 Bipolar disorder, current episode mixed, unspecified (principal); Z91.5 Personal history of self-harm; Z88.0 Allergy status to penicillin; S02.2XXD Fracture of nasal bones, subsequent encounter for fracture with routine healing; W19.XXXD Unspecified fall, subsequent encounter; S00.2 Other and unspecified superficial injuries of eyelid and periocular area; S00.81XD Abrasion of other part of head, subsequent encounter; K21.9 Gastro-esophageal reflux disease without esophagitis; J44.9 Chronic obstructive pulmonary disease, unspecified; Z87.891 Personal history of nicotine dependence; Z87.440 Personal history of urinary (tract) infections; Z86.718 Personal history of other venous thrombosis and embolism; Z86.711 Personal history of pulmonary embolism; Z85.3 Personal history of malignant neoplasm of breast; Z90.13 Acquired absence of bilateral breasts and nipples; E66.8 Other obesity; Z68.31 Body mass index [BMI] 31.0-31.9, adult; Z71.3 Dietary counseling and surveillance; E78.5 Hyperlipidemia, unspecified; E03.9 Hypothyroidism, unspecified; F15.11 Other stimulant abuse, in remission; I10 Essential (primary) hypertension; G89.29 Other chronic pain; M54.9 Dorsalgia, unspecified; Z87.81 Personal history of (healed) traumatic fracture; Z79.01 Long term (current) use of anticoagulants; Z79.899 Other long term (current) drug therapy; E87.5 Hyperkalemia; E83.39 Other disorders of phosphorus metabolism; M17.10 Unilateral primary osteoarthritis, unspecified knee
CPT/HCPCS: 36415; 71045; 80164; 80307; 83735; 84100; 84132; 84443; 85025; 87086; 93005; A4663; G0480; J1200; J2060; J2358; Q0162

== ENCOUNTER 2018-10-01 09:47 | Inpatient (IN) | payer OTHER, MEDICAID ==
[~2018-10-01] VITALS: Ht 167.6 cm; Wt 76.2 kg
[~2018-10-01 09:47] MED LIST changes: -DICL100G16 TP; -HYDR-3326 PO; -OMEP20TA5 PO
--- NOTE | 2018-10-01 09:51 | NUR ---
PT IS IN ROOM # 2B. DR CHINO EVALUATED THE PT. PT IS UNDER DIRECT OBSERVATION OF JOSE CARLOS GEE.
[2018-10-01] MEDS ORDERED: LORAZEPAM 2 MG/1 ML VIAL ONE ×2 (09:53→10:30)
[2018-10-01] MEDS ORDERED: OLANZAPINE 10 MG VIAL IM ONE ×2 (09:53→10:00)
--- NOTE | 2018-10-01 09:55 | NUR ---
PT IS SCREAMING AND USING INAPPROPRIATE AFFENSIVE LANGUAGE TOWARD ER STAFF. PT WAS MEDICATED ACCORDING DR CHINO ORDERS. PT TOLERATED TO MEDICATION WITHOUT COMPLICATIONS.
[2018-10-01] MEDS ORDERED: LORAZEPAM 2 MG/1 ML VIAL IM ONE ×2 (10:00→10:15)
--- NOTE | 2018-10-01 10:01 | NUR ---
PT TRIED TO SPIT ON NURSES DURING BLOOD DRAW. FACE MASK WAS PUT ON PT's FACE TO PREVENT SPITTING.
[2018-10-01] MEDS ORDERED: MIRT30TA7 PO (10:07)
[2018-10-01] MEDS ORDERED: OXYC-451 PO (10:07)
[2018-10-01] MEDS ORDERED: QUET25TA PO (10:07)
[2018-10-01] MEDS ORDERED: OMEP40CA37 PO (10:07)
[2018-10-01] MEDS ORDERED: PANT40TA4 PO (10:07)
[2018-10-01] MEDS ORDERED: QUET100T PO ×2 (10:07→10:23)
[2018-10-01 10:15] LABS: BASOPHILS # (AUTO) 0.1 K/uL (0.0-8.0); BASOPHILS % (AUTO) 0.5 % (0.0-2.0); EOSINOPHILS # (AUTO) 0.1 K/uL (0.0-0.7); HEMATOCRIT 44.7 % (31.2-41.9); HEMOGLOBIN 14.4 g/dL (10.9-14.3); LYMPHOCYTES # (AUTO) 2.4 K/uL (20.0-40.0); LYMPHOCYTES % (AUTO) 21.7 % (20.5-51.5); MEAN CORPUSCULAR HEMOGLOBIN 29.8 uug (24.7-32.8); MEAN CORPUSCULAR HGB CONC 32 g/dL (32.3-35.6); MEAN CORPUSCULAR VOLUME 92.4 fL (75.5-95.3); MONOCYTES # (AUTO) 0.7 K/uL (2.0-10.0); NEUTROPHILS # (AUTO) 7.8 K/uL (1.8-8.9); NEUTROPHILS % (AUTO) 70.8 % (38.5-71.5); PLATELET COUNT (AUTO) 320 K/uL (179-408); RED BLOOD CELL COUNT(AUTO) 4.84 MIL/uL (3.63-4.92)
[2018-10-01 10:19] LABS: CARBON DIOXIDE 24 mmol/L (21-32); CHLORIDE 104 mmol/L (98-107); CREATININE 0.8 mg/dL (0.6-1.3); GLUCOSE 114 mg/dL (74-106); POTASSIUM 4.3 mmol/L (3.5-5.1); UREA NITROGEN, BLOOD 28 mg/dL (7-18)
[2018-10-01] MEDS ORDERED: RIVA10TA PO (10:23)
[2018-10-01] MEDS ORDERED: CLON0.5T12 PO (10:23)
[2018-10-01] MEDS ORDERED: DIVA-78 PO (10:23)
[2018-10-01] MEDS ORDERED: DOXE10CA2 PO (10:23)
[2018-10-01] MEDS ORDERED: CELE200C PO (10:23)
--- NOTE | 2018-10-01 10:29 | NUR ---
PT STATED THAT SHE NEEDS CATHETER TO GIVE UA SAMPLE. DR CHINO WAS NOTIFIED. HE STATED TO HOLD ON F/C, MAY BE PT WILL URINATE ON HER OWN LATER.
[2018-10-01 10:31] LABS: ETHANOL < 3 MG/DL (0-0)
[2018-10-01 10:33] LABS: ALANINE AMINOTRANSFERASE 10 U/L (14-59); ALKALINE PHOSPHATASE 111 U/L (50-136); ASPARTATE AMINOTRANSFERASE 11 U/L (15-37); BILIRUBIN,DIRECT 0.1 mg/dL (0.0-0.2); BILIRUBIN,TOTAL 0.4 mg/dL (0.2-1.0); TOTAL PROTEIN, SERUM 7.2 g/dL (6.4-8.2)
[2018-10-01 10:34] LABS: ACETAMINOPHEN < 2.0 ug/mL (10-30)
--- NOTE | 2018-10-01 10:42 | NUR ---
LILLIAN VELÁSQUEZ WAS CALLED TO EVALUATE THE PT. MESSAGE WAS LEFT.
[2018-10-01 11:21] LABS: *BILIRUBIN,URIN NEGATIVE (NEGATIVE); *BLOOD, URINE NEGATIVE (NEGATIVE); *CLARITY,URINE CLEAR (CLEAR); *COLOR,URINE LIGHT YELLOW (YELLOW); *KETONES,URINE NEGATIVE (NEGATIVE); *UROBILINOGEN,URINE 0.2 E.U./dl (NORMAL); LEUKOCYTE ESTERASE ,URINE NEGATIVE (NEGATIVE); NITRITE, URINE NEGATIVE (NEGATIVE); PH,URINE 7.5 (5.0-8.0); UGLUCOSE NEGATIVE (NEGATIVE)
[2018-10-01 11:27] LABS: WBC,URINE 0-3 /HPF (0-3)
[2018-10-01 11:29] LABS: *AMPHETAMINE, URINE NEGATIVE (NEGATIVE); *BARBITURATE, URINE NEGATIVE (NEGATIVE); *CANNABINOID, URINE NEGATIVE (NEGATIVE); *COCCAINE, URINE NEGATIVE (NEGATIVE); *OPIATE, URINE POSITIVE (NEGATIVE); *PHENCYCLIDINE SCREEN,URINE NEGATIVE (NEGATIVE)
[2018-10-01 13:56] VITALS: BP 159/75
--- NOTE | 2018-10-01 14:04 | NUR ---
LILLIAN VELÁSQUEZ EVALUATED THE PT.
--- NOTE | 2018-10-01 14:05 | NUR ---
REPORT WAS GIVEN TO RN MHU. PT WAS TRANSFERED TO ROOM #145B.
[2018-10-01] MEDS ORDERED: TEMAZEPAM 7.5 MG CAPSULE PO PRN (14:15)
[2018-10-01] MEDS ORDERED: LORAZEPAM 1 MG TABLET PO PRN (14:15)
[2018-10-01] MEDS ORDERED: MAGNESIUM HYDROXIDE 30 ML LIQUID UDC PO PRN (14:15)
[2018-10-01] MEDS ORDERED: TEMAZEPAM 15 MG CAPSULE PO PRN (14:45)
[2018-10-01] MEDS: QUETIAPINE FUMARATE 100 MG TABLET PO SCH ×2 (17:30→20:17)
[2018-10-01] MEDS: CLONAZEPAM 0.5 MG TABLET PO SCH (17:30)
[2018-10-01] MEDS: DIVALPROEX 250 MG TABLET.DR PO SCH ×2 (17:30→20:17)
[2018-10-01 20:00] VITALS: BP 144/81
[2018-10-01] MEDS: MIRTAZAPINE 15 MG TABLET PO SCH (20:18)
[2018-10-01] MEDS: ATORVASTATIN 40 MG TABLET PO SCH (20:21)
[2018-10-01] MEDS: MAG HYDROX/AL HYDROX/SIMETH 30 ML LIQUID UDC PO PRN (20:35)
--- NOTE | 2018-10-01 20:35 | NUR ---
RECEIVED PATIENT IN HER ROOM, SHE IS NOTED A/O X 2. SHE IS NOTED WITHDRAWN, NEEDY, EASILY IRRITABLE, FLAT AFFECT. C/O NAUSEA. MYLANTA PO PRN WAS GIVEN. V/S STABLE AT THIS TIME. PATIENT IS POOR HISTORIAN. SHE WAS REASSURED FOR HER SAFETY. WILL CONTINUE TO MONITOR.
[2018-10-01] MEDS: LORAZEPAM 0.5 MG TABLET PO PRN (20:57)
--- NOTE | 2018-10-01 20:57 | NUR ---
GPS/NSG Called facility to seek clarification in regards to medication administration. Nathalie at [facility] stated that the patient had morning medication on 10/01/18. Pharmacy informed, patient to start Xrelto as ordered in a.m.
--- NOTE | 2018-10-01 21:00 | NUR ---
PATIENT NOTED YELLING, ANXIOUS AND AGITATED. ATIVAN 0.5MG PO PRN WAS GIVEN. CONTINUE COMPLAIN OF NAUSEA WITHOUT EMESIS. CIERA APPAREL SALES LEADER WAS CALLED RE: NAUSEA. WILL CONTINUE TO MONITOR.
[2018-10-01] MEDS: ONDANSETRON ODT 4 MG TAB.RAPDIS SL PRN (21:21)
--- NOTE | 2018-10-01 21:25 | NUR ---
RECEIVED A TELEPHONE ORDER TO ADMINISTER ZOFRAN 4MG PO Q4HRS PRN FOR NAUSEA. ORDER NOTED AND CARRIED OUT. WILL CONTINUE TO MONITOR.
[2018-10-02] MEDS: LORAZEPAM 0.5 MG TABLET PO PRN ×3 (00:55→12:09)
[2018-10-02] MEDS: ONDANSETRON ODT 4 MG TAB.RAPDIS SL PRN ×2 (01:39→05:50)
[2018-10-02] MEDS: LEVOTHYROXINE SODIUM 137 MCG TABLET PO SCH (06:46)
[2018-10-02] MEDS: PANTOPRAZOLE SODIUM 40 MG TABLET.DR PO SCH (06:46)
--- NOTE | 2018-10-02 06:49 | NUR ---
PATIENT SLEPT FOR A TOTAL OF 1/2 HRS LAST NIGHT. SHE WAS NOTED YELLING "NURSE, NURSE!" FROM TIME TO TIME. SHE IS SOMEWHAT REDIRECTABLE. PATIENT IS COMPLIANT WITH MEDICATION REGIMENT AT THIS TIME. A SHOWER WAS GIVEN. IT WAS NOTED MULTIPLE SMALL CIRCULAR SCARS ALL OVER HER LEGS AND ARM. SHE REFUSED PICTURES. SHE STATED THAT THOSE SCARS ALL OLD FROM PREVIOUS "INFECTIONS". WILL CONTINUE TO MONITOR.
[2018-10-02 07:30] VITALS: BP 136/94
[2018-10-02] MEDS: CLONAZEPAM 0.5 MG TABLET PO SCH ×2 (08:20→16:05)
[2018-10-02] MEDS: OXYBUTYNIN XL 5 MG TABSR PO SCH (08:21)
[2018-10-02] MEDS: QUETIAPINE FUMARATE 100 MG TABLET PO SCH ×3 (08:21→20:51)
[2018-10-02] MEDS: CELECOXIB 200 MG CAPSULE PO SCH (08:21)
[2018-10-02] MEDS: GABAPENTIN 300 MG CAPSULE PO SCH ×3 (08:21→16:05)
[2018-10-02] MEDS: DIVALPROEX 250 MG TABLET.DR PO SCH ×3 (08:21→20:51)
[2018-10-02] MEDS: DULOXETINE 60 MG CAPSULE.DR PO SCH (08:21)
[2018-10-02] MEDS: ACETAMINOPHEN 325 MG TABLET PO PRN (12:11)
[2018-10-02 16:00] VITALS: BP 145/80
--- NOTE | 2018-10-02 16:16 | NUR ---
UR NOTE: conservation worker faxed clinical update to assigned clinical case manager, Shwetha, at [facility] [ph: [phone]; ]. conservation worker received successful fax return and placed in patient chart.
[2018-10-02] MEDS: RIVAROXABAN 10 MG TABLET PO SCH (17:03)
--- NOTE | 2018-10-02 17:06 | NUR ---
Initial Discharge Plan: Patient is a 63 year old female who currently lives at [facility] [[address] [place] [address]; ] with her boyfriend, Josemanuel Short [[phone]]. Per patient, she would like to return to residence when ready. shut off worker called and spoke with Phylicia, volunteer coordinator, at facility who is agreeable with patient returning when ready. shut off worker will continue to collaborate with patient, patient support system, and MD on a safe and proper discharge.
--- NOTE | 2018-10-02 20:50 | NUR ---
Received patient in bed, arouses to name. denies any discomfort. NAD noted.
[2018-10-02] MEDS: ATORVASTATIN 40 MG TABLET PO SCH (20:51)
[2018-10-02] MEDS: MIRTAZAPINE 15 MG TABLET PO SCH (20:51)
[2018-10-03] MEDS: LORAZEPAM 0.5 MG TABLET PO PRN (03:57)
[2018-10-03] MEDS: ONDANSETRON ODT 4 MG TAB.RAPDIS SL PRN (03:57)
--- NOTE | 2018-10-03 03:57 | NUR ---
Awake, c/o nausea and being anxious. Denies SI. Medicated with Ativan and Zofran.
--- NOTE | 2018-10-03 04:30 | NUR ---
Took shower by herself. Complete linen change done.
[2018-10-03] MEDS: MAG HYDROX/AL HYDROX/SIMETH 30 ML LIQUID UDC PO PRN ×3 (05:54→06:27)
--- NOTE | 2018-10-03 06:20 | NUR ---
C/o of nausea again. Skin warm and dry. Appears mildly agitated but cooperative. Refused Mylanta. Protonix and Synthroid given without worsening nausea.
[2018-10-03] MEDS: PANTOPRAZOLE SODIUM 40 MG TABLET.DR PO SCH (06:25)
[2018-10-03] MEDS: LEVOTHYROXINE SODIUM 137 MCG TABLET PO SCH (06:25)
[2018-10-03 07:30] VITALS: BP 157/90
[2018-10-03] MEDS: QUETIAPINE FUMARATE 100 MG TABLET PO SCH ×3 (08:41→20:53)
[2018-10-03] MEDS: OXYBUTYNIN XL 5 MG TABSR PO SCH (08:41)
[2018-10-03] MEDS: CELECOXIB 200 MG CAPSULE PO SCH (08:41)
[2018-10-03] MEDS: GABAPENTIN 300 MG CAPSULE PO SCH ×3 (08:41→17:24)
[2018-10-03] MEDS: CLONAZEPAM 0.5 MG TABLET PO SCH ×2 (08:41→17:24)
[2018-10-03] MEDS: DULOXETINE 60 MG CAPSULE.DR PO SCH (08:42)
[2018-10-03] MEDS: DIVALPROEX 250 MG TABLET.DR PO SCH ×3 (08:42→20:53)
[2018-10-03 16:00] VITALS: BP 92/67
--- NOTE | 2018-10-03 16:18 | NUR ---
UR NOTE: personal care worker faxed clinical update to assigned rn case mgr, Shwetha, at [facility] [ph: [phone]; ]. personal care worker received successful fax return and placed in patient chart.
[2018-10-03] MEDS: RIVAROXABAN 10 MG TABLET PO SCH (17:24)
[2018-10-03 20:16] VITALS: BP 141/76
[2018-10-03] MEDS: ATORVASTATIN 40 MG TABLET PO SCH (20:53)
[2018-10-03] MEDS: MIRTAZAPINE 15 MG TABLET PO SCH (20:54)
[2018-10-04] MEDS: PANTOPRAZOLE SODIUM 40 MG TABLET.DR PO SCH (06:11)
[2018-10-04] MEDS: LEVOTHYROXINE SODIUM 137 MCG TABLET PO SCH (06:11)
[2018-10-04 07:30] VITALS: BP 155/86
[2018-10-04] MEDS: CELECOXIB 200 MG CAPSULE PO SCH (08:06)
[2018-10-04] MEDS: GABAPENTIN 300 MG CAPSULE PO SCH ×3 (08:06→16:25)
[2018-10-04] MEDS: QUETIAPINE FUMARATE 100 MG TABLET PO SCH ×3 (08:06→21:00)
[2018-10-04] MEDS: DIVALPROEX 250 MG TABLET.DR PO SCH ×3 (08:06→21:00)
[2018-10-04] MEDS: LORAZEPAM 0.5 MG TABLET PO PRN ×2 (08:06→13:14)
[2018-10-04] MEDS: CLONAZEPAM 0.5 MG TABLET PO SCH ×2 (08:06→16:25)
[2018-10-04] MEDS: OXYBUTYNIN XL 5 MG TABSR PO SCH (08:10)
[2018-10-04] MEDS: DULOXETINE 60 MG CAPSULE.DR PO SCH (08:10)
[2018-10-04] MEDS: ACETAMINOPHEN 325 MG TABLET PO PRN (13:14)
--- NOTE | 2018-10-04 16:23 | NUR ---
UR NOTE: ditch worker faxed clinical update to assigned cyanide case hardener, Shwetha, at [facility] [ph: [phone]; ]. ditch worker received successful fax return and placed in patient chart.
[2018-10-04] MEDS: RIVAROXABAN 10 MG TABLET PO SCH (16:28)
--- NOTE | 2018-10-04 16:38 | NUR ---
PATIENT VOMIT 2X CLEAR.
[2018-10-04 20:40] VITALS: BP 98/58
[2018-10-04] MEDS: ATORVASTATIN 40 MG TABLET PO SCH (21:00)
[2018-10-04] MEDS: MIRTAZAPINE 15 MG TABLET PO SCH (21:00)
--- NOTE | 2018-10-04 21:39 | NUR ---
Received patient asleep in room. B/P 98/58, Pulse 101, resp 14, temp97.4. Patient woke up when VS were being done, the back to sleep. Patient was asked by nurse try to stay awake for a bit, the patients response was ' later '. No 2100 medications given at this time d/t patient too sleepy. Continuing to monitor resp. status, and alertness. No acute findings. Patient does wake up to name and touch.
--- NOTE | 2018-10-05 05:53 | NUR ---
Patient up during the night to void. No distress, denies pain. Gait fairly steady, but stand by assist given to ensure safety. Patient back to bed asleep at this time. Bed alarm on.
[2018-10-05] MEDS: LEVOTHYROXINE SODIUM 137 MCG TABLET PO SCH (06:15)
[2018-10-05] MEDS: PANTOPRAZOLE SODIUM 40 MG TABLET.DR PO SCH (06:15)
[2018-10-05] MEDS: LORAZEPAM 0.5 MG TABLET PO PRN ×2 (06:53→12:31)
[2018-10-05 07:30] VITALS: BP 135/96
[2018-10-05] MEDS: CELECOXIB 200 MG CAPSULE PO SCH (08:19)
[2018-10-05] MEDS: GABAPENTIN 300 MG CAPSULE PO SCH ×3 (08:20→17:55)
[2018-10-05] MEDS: DULOXETINE 60 MG CAPSULE.DR PO SCH (08:21)
[2018-10-05] MEDS: OXYBUTYNIN XL 5 MG TABSR PO SCH (08:21)
[2018-10-05] MEDS: DIVALPROEX 250 MG TABLET.DR PO SCH ×3 (08:21→21:00)
[2018-10-05] MEDS: QUETIAPINE FUMARATE 100 MG TABLET PO SCH ×3 (08:21→21:00)
[2018-10-05] MEDS: CLONAZEPAM 0.5 MG TABLET PO SCH ×2 (10:33→17:55)
[2018-10-05] MEDS: OXYCODONE HCL 5 MG TABLET PO PRN (16:41)
[2018-10-05 17:02] VITALS: BP 126/75
[2018-10-05] MEDS: RIVAROXABAN 10 MG TABLET PO SCH (17:56)
[2018-10-05 20:00] VITALS: BP 154/85
[2018-10-05] MEDS: MIRTAZAPINE 15 MG TABLET PO SCH (21:00)
[2018-10-05 21:15] VITALS: BP 90/56
[2018-10-05] MEDS: ATORVASTATIN 40 MG TABLET PO SCH (21:31)
--- NOTE | 2018-10-05 21:33 | NUR ---
Initial BP to (R) arm elevated at 154/85 and 79/61 on (L) arm. 4 subsequent BPs taken to (B) arms, all decreased. Last BP at 2114 to (R) arm 90/56. HS psych meds held d/t decreased BP. Pt asymptomatic and currently resting in bed with feet elevated. PO fluid intake encouraged.
[2018-10-05] MEDS: ACETAMINOPHEN 325 MG TABLET PO PRN (21:57)
[2018-10-06] MEDS: PANTOPRAZOLE SODIUM 40 MG TABLET.DR PO SCH (06:24)
[2018-10-06] MEDS: LEVOTHYROXINE SODIUM 137 MCG TABLET PO SCH (06:24)
[2018-10-06 07:30] VITALS: BP 133/77
[2018-10-06] MEDS: DULOXETINE 60 MG CAPSULE.DR PO SCH (08:54)
[2018-10-06] MEDS: DIVALPROEX 250 MG TABLET.DR PO SCH ×3 (08:54→17:11)
[2018-10-06] MEDS: CELECOXIB 200 MG CAPSULE PO SCH (08:54)
[2018-10-06] MEDS: GABAPENTIN 300 MG CAPSULE PO SCH ×3 (08:55→17:11)
[2018-10-06] MEDS: OXYBUTYNIN XL 5 MG TABSR PO SCH (08:55)
[2018-10-06] MEDS: CLONAZEPAM 0.5 MG TABLET PO SCH ×2 (08:55→17:11)
[2018-10-06] MEDS: QUETIAPINE FUMARATE 100 MG TABLET PO SCH ×3 (08:55→20:06)
[2018-10-06] MEDS: LIDOCAINE 5% PATCH TD SCH (09:01)
[2018-10-06] MEDS: OXYCODONE HCL 5 MG TABLET PO PRN (14:53)
[2018-10-06 16:58] VITALS: BP 116/68
[2018-10-06] MEDS: RIVAROXABAN 10 MG TABLET PO SCH (17:15)
--- NOTE | 2018-10-06 18:49 | NUR ---
Upon waking, patient asked for either klonopin or ativan as she reports feeling severely anxious. Routine morning meds administered. Patient has been cooperative with care and only asked once for pain medication due to radiating back pain to knee.
[2018-10-06] MEDS: ATORVASTATIN 40 MG TABLET PO SCH (20:06)
[2018-10-06] MEDS: MIRTAZAPINE 15 MG TABLET PO SCH (20:06)
[2018-10-06] MEDS: ACETAMINOPHEN 325 MG TABLET PO PRN (20:08)
[2018-10-06 20:13] VITALS: BP 105/55
[2018-10-07] MEDS: LEVOTHYROXINE SODIUM 137 MCG TABLET PO SCH (06:23)
[2018-10-07] MEDS: PANTOPRAZOLE SODIUM 40 MG TABLET.DR PO SCH (06:23)
[2018-10-07 07:30] VITALS: BP 116/69
[2018-10-07] MEDS: CLONAZEPAM 0.5 MG TABLET PO SCH (08:28)
[2018-10-07] MEDS: OXYBUTYNIN XL 5 MG TABSR PO SCH (08:28)
[2018-10-07] MEDS: CELECOXIB 200 MG CAPSULE PO SCH (08:28)
[2018-10-07] MEDS: DULOXETINE 60 MG CAPSULE.DR PO SCH (08:28)
[2018-10-07] MEDS: GABAPENTIN 300 MG CAPSULE PO SCH ×2 (08:28→12:12)
[2018-10-07] MEDS: LIDOCAINE 5% PATCH TD SCH (08:28)
[2018-10-07] MEDS: DIVALPROEX 250 MG TABLET.DR PO SCH ×2 (08:28→12:11)
[2018-10-07] MEDS: QUETIAPINE FUMARATE 100 MG TABLET PO SCH (08:28)
--- NOTE | 2018-10-07 11:47 | NUR ---
DISCHARGE NOTE: Patient will be discharged back to [facility] [[address] [place] [address]; ]. Patient will receive transportation by taxi at 2:30pm. Please arrange taxi transportation for this patient. ammonia worker spoke with Phylicia, sales order coordinator, who states they are ready to accept the patient today. Patient is AxOx4 and is aware and is agreeable with discharge plans. Patient will follow-up with Dr. Sean Pickering [[address], [place] [address]; ]. ammonia worker is awaiting call back from Funmi [[phone]. [phone]], onsite case manager, at [facility] with psychiatric follow-up appointment. Once information has been received, social insurance adviser will update note and patient. Patient was also provided with outpatient mental health referrals for [facility] Crisis Line ( ), Steffi Baac ( ), and National Suicide Prevention Lifeline ( ). Addendum: 10/07/18 at 1342 by DIEGO BARROW ammonia worker received follow-up phone call from Funmi stating that patient has a psychiatrist follow-up with Dr. Siddiqui on November 04, 2018 at 3:00pm at: [address], [address], [place] [address]; . Funmi also states that patient will follow-up with Dr. Orin Harris, psychotherapist. Funmi has no confirmed appointment as of now and states she will call patient with information.
[2018-10-07] MEDS: LORAZEPAM 0.5 MG TABLET PO PRN (12:14)
[2018-10-07] MEDS: OXYCODONE HCL 5 MG TABLET PO PRN (12:47)
--- NOTE | 2018-10-07 15:18 | NUR ---
Pt received this morning, AOx4, no acute distress, or SOB. Pt compliant with routine medications and PRN medication for chronic right knee pain, and anxiety per MD orders. Pt able to make needs known, denies SI/HI/AH/VH at this time. Discharge order received. Discharge plan discussed with Pt. Pt teaching provided r/t medications. Report called in to Gary Banks, - [facility] [[address] [place] [address]; ]. Discharge paperwork completed, reviewed with Pt, signed, copy placed in chart and originals given to Pt. No home medications to return. Personal belongings accounted for and returned to Pt. Belongings list signed. Patient reminded to follow up as advised with with Dr. Sean Pickering [[address], [place] [address]; ]. color worker is awaiting call back from Funmi [[phone]. [phone]], case monitor, at [facility] with psychiatric follow-up appointment. Additional resources provided r/t Pt safety. Pt safely escorted out of unit in wheelchair into Taxi, voucher provided, and ID band removed. Will remove Pt from system shortly.
== END 2018-10-07 14:45 | DRG 885 ==
LOC: ER 09:47 → GPS 11:39
PROVIDERS: ADMIT Psychiatry & Neurology Psychiatry; ATTEND Nurse Practitioner Acute Care
DX: F31.64 Bipolar disorder, current episode mixed, severe, with psychotic features (principal); N17.0 Acute kidney failure with tubular necrosis; I74.9 Embolism and thrombosis of unspecified artery; Z79.01 Long term (current) use of anticoagulants; Z79.899 Other long term (current) drug therapy; E03.9 Hypothyroidism, unspecified; E78.5 Hyperlipidemia, unspecified; F17.210 Nicotine dependence, cigarettes, uncomplicated; Z85.3 Personal history of malignant neoplasm of breast; Z91.5 Personal history of self-harm; Z79.890 Hormone replacement therapy; J44.9 Chronic obstructive pulmonary disease, unspecified; Z79.51 Long term (current) use of inhaled steroids; G89.29 Other chronic pain; M54.9 Dorsalgia, unspecified; M79.674 Pain in right toe(s); F15.10 Other stimulant abuse, uncomplicated; E78.00 Pure hypercholesterolemia, unspecified
CPT/HCPCS: 36415; 80164; 80307; 85025; A4663; C1758; G0480; G0480-TC; J2060; J2358; J3490; Q0162

== ENCOUNTER 2018-11-12 12:07 | Emergency (ER) | payer OTHER, MEDICAID ==
[~2018-11-12] VITALS: Ht 162.6 cm; Wt 77.1 kg
[~2018-11-12 12:07] MED LIST changes: +CELE200C PO; +CLON0.5T12 PO; +DIVA-78 PO; -DOCU250C88 PO; +DOXE10CA2 PO; -FLUT1BLS IH; +MIRT30TA7 PO; +OMEP40CA37 PO; +OXYC-451 PO; -PANT40TA2 PO; +PANT40TA4 PO; +QUET100T PO; +RIVA10TA PO; -RIVA20TA PO
[2018-11-12] MEDS ORDERED: HALOPERIDOL LACTATE 5 MG/1 ML VIAL IM ONE (12:15)
[2018-11-12] MEDS ORDERED: HALOPERIDOL LACTATE 5 MG/1 ML VIAL ONE (12:16)
[2018-11-12] MEDS ORDERED: LORAZEPAM 2 MG/1 ML VIAL ONE ×2 (12:37→14:53)
--- NOTE | 2018-11-12 12:38 | NUR ---
Pt is in room #2a. dr Painter evaluated the pt.
[2018-11-12] MEDS ORDERED: OXYC-451 PO (12:44)
[2018-11-12] MEDS ORDERED: DIVA-78 PO (12:44)
[2018-11-12] MEDS ORDERED: PERM60CR4 TP (12:44)
[2018-11-12] MEDS ORDERED: GABA-534 PO (12:44)
[2018-11-12] MEDS ORDERED: ATOR40TA PO (12:44)
[2018-11-12] MEDS ORDERED: CLOB15OI8 TOP (12:44)
[2018-11-12] MEDS ORDERED: DOXE10CA2 PO (12:44)
[2018-11-12] MEDS ORDERED: DICL100G26 TP (12:44)
[2018-11-12] MEDS ORDERED: METH500T6 PO (12:44)
[2018-11-12] MEDS ORDERED: TRIA80OI2 TP (12:44)
[2018-11-12] MEDS ORDERED: MAGN400O6 PO (12:44)
[2018-11-12] MEDS ORDERED: TRIA15CR2 TP (12:44)
[2018-11-12] MEDS ORDERED: PROM6.256 PO (12:44)
[2018-11-12] MEDS ORDERED: GABA-532 PO (12:44)
[2018-11-12] MEDS ORDERED: DULO60CA45 PO (12:44)
[2018-11-12] MEDS ORDERED: METH10TA2 PO (12:44)
[2018-11-12] MEDS ORDERED: LEVO137T2 PO (12:44)
[2018-11-12] MEDS ORDERED: OMEP1CAP24 PO (12:44)
[2018-11-12] MEDS ORDERED: MIRT30TA7 PO (12:44)
[2018-11-12] MEDS ORDERED: FLUT1BLS IH (12:44)
[2018-11-12] MEDS ORDERED: CLON0.5T12 PO (12:44)
[2018-11-12] MEDS ORDERED: CELE200C PO (12:44)
[2018-11-12] MEDS ORDERED: OXYB5TAB PO (12:44)
[2018-11-12] MEDS ORDERED: RIVA20TA PO (12:44)
[2018-11-12] MEDS ORDERED: PANT40TA4 PO (12:44)
[2018-11-12] MEDS ORDERED: LIDO30AD10 TD (12:44)
[2018-11-12] MEDS ORDERED: QUET100T PO (12:44)
[2018-11-12] MEDS ORDERED: HYDR-500 PO (12:44)
[2018-11-12] MEDS ORDERED: LORAZEPAM 2 MG/1 ML VIAL IV ONE ×2 (12:45→15:00)
[2018-11-12 13:10] LABS: BASOPHILS # (AUTO) 0.1 K/uL (0.0-8.0); BASOPHILS % (AUTO) 0.7 % (0.0-2.0); EOSINOPHILS # (AUTO) 0.1 K/uL (0.0-0.7); EOSINOPHILS % (AUTO) 0.7 % (0.0-7.0); HEMATOCRIT 42.8 % (31.2-41.9); LYMPHOCYTES # (AUTO) 1.7 K/uL (20.0-40.0); LYMPHOCYTES % (AUTO) 18.7 % (20.5-51.5); MEAN CORPUSCULAR HEMOGLOBIN 30.6 uug (24.7-32.8); MEAN CORPUSCULAR HGB CONC 33 g/dL (32.3-35.6); MEAN CORPUSCULAR VOLUME 93.8 fL (75.5-95.3); MONOCYTES # (AUTO) 0.5 K/uL (2.0-10.0); MONOCYTES % (AUTO) 5.5 % (0.0-11.0); NEUTROPHILS # (AUTO) 6.7 K/uL (1.8-8.9); NEUTROPHILS % (AUTO) 74.4 % (38.5-71.5); PLATELET COUNT (AUTO) 315 K/uL (179-408); RED BLOOD CELL COUNT(AUTO) 4.56 MIL/uL (3.63-4.92)
[2018-11-12 13:11] LABS: CARBON DIOXIDE 27 mmol/L (21-32); CHLORIDE 103 mmol/L (98-107); CREATININE 0.7 mg/dL (0.6-1.3); GLUCOSE 111 mg/dL (74-106); POTASSIUM 3.5 mmol/L (3.5-5.1); UREA NITROGEN, BLOOD 22 mg/dL (7-18)
[2018-11-12] MEDS ORDERED: IV NORMAL SALINE 1000 ML BAG IV ONE (13:15)
[2018-11-12 13:16] LABS: ETHANOL < 3 MG/DL (0-0)
[2018-11-12 13:17] LABS: ALANINE AMINOTRANSFERASE 11 U/L (14-59); ALKALINE PHOSPHATASE 94 U/L (50-136); ASPARTATE AMINOTRANSFERASE 10 U/L (15-37); BILIRUBIN,DIRECT 0.1 mg/dL (0.0-0.2); BILIRUBIN,TOTAL 0.4 mg/dL (0.2-1.0); LIPASE 72 U/L (73-393)
[2018-11-12 13:18] LABS: ACETAMINOPHEN < 2.0 ug/mL (10-30)
[2018-11-12] MEDS ORDERED: ONDANSETRON 4 MG/2 ML VIAL ONE (13:59)
[2018-11-12] MEDS ORDERED: ONDANSETRON IV *ER 4 MG/2 ML VIAL IV ONE (14:00)
[2018-11-12 14:46] LABS: *BILIRUBIN,URIN NEGATIVE (NEGATIVE); *BLOOD, URINE NEGATIVE (NEGATIVE); *CLARITY,URINE CLEAR (CLEAR); *COLOR,URINE YELLOW (YELLOW); *KETONES,URINE TRACE (NEGATIVE); *UROBILINOGEN,URINE 0.2 E.U./dl (NORMAL); LEUKOCYTE ESTERASE ,URINE NEGATIVE (NEGATIVE); NITRITE, URINE NEGATIVE (NEGATIVE); PH,URINE 8.5 (5.0-8.0); UGLUCOSE NEGATIVE (NEGATIVE)
[2018-11-12 15:00] LABS: *AMPHETAMINE, URINE NEGATIVE (NEGATIVE); *BARBITURATE, URINE NEGATIVE (NEGATIVE); *CANNABINOID, URINE NEGATIVE (NEGATIVE); *COCCAINE, URINE NEGATIVE (NEGATIVE); *OPIATE, URINE NEGATIVE (NEGATIVE); *PHENCYCLIDINE SCREEN,URINE NEGATIVE (NEGATIVE)
[2018-11-12 15:01] LABS: MUCUS,URINE FEW /LPF (0-FEW); SQUAMOUS EPITHELIAL CELL,UR FEW /HPF (NONE SEEN); URINE AMORPHOUS PHOSPHATES FEW /HPF; WBC,URINE 0-3 /HPF (0-3)
[2018-11-12] MEDS ORDERED: HYDROCODONE/APAP 10-325 MG TABLET ONE (18:13)
[2018-11-12] MEDS ORDERED: HYDROCODONE/APAP 10-325 MG TABLET PO ONE (18:15)
--- NOTE | 2018-11-12 18:35 | NUR ---
[facility] WAS CALLED TO BRING PT BACK TO HER NURSING FACILITY. JOSE IS 45 MINUTES.
--- NOTE | 2018-11-12 19:02 | NUR ---
REPORT GIVEN TO PAYROLL BENEFITS ADMINISTRATOR RN.
--- NOTE | 2018-11-12 19:11 | NUR ---
PT WAS TRANSFERED TO [facility]IA [facility]. REPORT GIVRN [facility] EMT AND TO FACILITY REP.
[2018-11-12 19:16] VITALS: BP 118/69
== END 2018-11-12 19:17 | disposition home or self-care (01) ==
LOC: ER 12:07
DX: F41.9 Anxiety disorder, unspecified (principal); F29 Unspecified psychosis not due to a substance or known physiological condition; R79.89 Other specified abnormal findings of blood chemistry; G89.29 Other chronic pain; M25.561 Pain in right knee; E03.9 Hypothyroidism, unspecified; E78.5 Hyperlipidemia, unspecified; F17.200 Nicotine dependence, unspecified, uncomplicated; Z88.0 Allergy status to penicillin; Z88.8 Allergy status to other drugs, medicaments and biological substances; Z79.899 Other long term (current) drug therapy
CPT/HCPCS: 36415; 80048; 80076; 80307; 81001; 83690; 85025; 93005; 96361; 96374; 96375; 96376; 99284; G0480 ×2; G0481; J1630; J2060 ×2; J2405; A4663; C1758; J7030

== ENCOUNTER 2019-02-25 14:24 | Emergency (ER) | payer OTHER ==
[~2019-02-25] VITALS: Ht 162.6 cm; Wt 77.1 kg
[~2019-02-25 14:24] MED LIST changes: +CLOB15OI8 TOP; +DICL100G26 TP; +DULO60CA45 PO; +FLUT1BLS IH; +GABA-532 PO; +HYDR-500 PO; +LIDO30AD10 TD; +MAGN400O6 PO; +METH10TA2 PO; +METH500T6 PO; +OMEP1CAP24 PO; -OMEP40CA37 PO; -OXYB5TAB29 PO; +OXYB5TAB4 PO; +PERM60CR4 TP; +PROM6.256 PO; -RIVA10TA PO; +RIVA20TA PO; +TRIA15CR2 TP; +TRIA80OI2 TP
[2019-02-25] MEDS ORDERED: BACITRACIN ZINC OINT 15 GM TUBE TOP STA (14:49)
--- NOTE | 2019-02-25 14:51 | NUR ---
DR MERAZ AT BEDSIDE FOR EVALUATION.
--- NOTE | 2019-02-25 15:20 | NUR ---
TRIP NO [id number] ETA [id number]
--- NOTE | 2019-02-25 16:09 | NUR ---
Report given to glass furnace tender, pt left ER in stable condition, all belongings sent w/ pt.
[2019-02-25 16:18] VITALS: BP 100/63
== END 2019-02-25 16:21 | disposition home or self-care (01) ==
LOC: ER 14:24
DX: B86 Scabies (principal); G89.29 Other chronic pain; M54.9 Dorsalgia, unspecified; E03.9 Hypothyroidism, unspecified; E78.5 Hyperlipidemia, unspecified; F17.200 Nicotine dependence, unspecified, uncomplicated; Z88.0 Allergy status to penicillin; Z88.8 Allergy status to other drugs, medicaments and biological substances; Z79.899 Other long term (current) drug therapy
CPT/HCPCS: A4663